=== PATIENT | female | born 1960 | race Caucasian/White ===

== ENCOUNTER → 2018-03-18 08:15 | Outpatient (CLI) | payer OTHER, SELFPAY ==
[2018-03-18 09:06] LABS: ALB/GLOB Ratio 0.9 RATIO (0.9-2.4); AST(SGOT) 21 U/L (15-37); Alanine Aminotransfer ALT/SGPT 28 U/L (13-56); Albumin, Serum 3.4 g/dL (3.2-5.0); Alkaline Phosphatase 47 U/L (45-117); Anion Gap 7 (5-15); BUN 13 mg/dL (7-18); BUN/Creat Ratio 15.1 RATIO (10-20); Calcium,Total 8.7 mg/dL (8.5-10.1); Chloride 108 mmol/L (98-107); Cholesterol 193 mg/dL (200); Creatinine, Serum 0.86 mg/dL (0.55-1.02); EST Glomerular Filtration Rate 71 mL/min (>60); Est Glom Filt Rate - Afr Amer 86 mL/min (>60); Globulin 3.8 g/dL (2.2-4.2); Glucose 102 mg/dL (74-106); High Density Lipoprotein 42 mg/dL; Potassium 4.2 mmol/L (3.5-5.1); Protein, Total 7.2 g/dL (6.4-8.2); Sodium Level 144 mmol/L (136-145); Triglycerides 248 mg/dL; Very Low Density Lipoprotein 50 mg/dL (5-40)
== END ==
PROVIDERS: Family Provider Family Medicine; PCP Family Medicine; Visit Provider Family Medicine
DX: E78.2 Mixed hyperlipidemia (principal)
CPT/HCPCS: 36415; 80053; 80061

== ENCOUNTER → 2018-03-26 07:13 | Outpatient (CLI) | payer OTHER, SELFPAY ==
--- NOTE | 2018-03-26 07:22 | BI_ITS ---
MAMMOGRAPHY - BILATERAL SCREENING REASON FOR EXAM: Female, 58 years old. Routine annual screening examination. PERTINENT HISTORY: Mother with breast cancer. TECHNIQUE: Digital bilateral breast meagan (3D mammographic acquisition) in the CC and MLO projections. 2-D mediolateral oblique (MLO) and craniocaudad (CC) views of both breasts were obtained. CAD: Full Field Digital Mammography with Computer Added Detection was performed. COMPARISON: Comparison is made with prior study dated April 16, 2017 and March 28, 2016. FINDINGS: Breast Composition: There are scattered areas of fibroglandular density. There are no dominant masses or suspicious calcifications. Stable ill-defined 4 mm nodule in the deep upper outer portion of the right breast. Stable appearance of the small bilateral axillary lymph nodes. No other significant abnormalities are identified. There has been no significant change since the prior study. BI/SCREENING MAMM (CAD), BILAT IMPRESSION: Stable bilateral screening mammogram. Yearly follow-up mammogram recommended. (A) ASSESSMENT CATEGORY: BIRADS Category 2: Benign. A letter regarding these results will be sent to the patient by the facility within 30 days. Approximately 10% of breast cancers are not detected by mammography. A normal mammogram should not delay biopsy of a clinically suspicious abnormality. [id number] Electronically Signed: Tab Castañeda MD at 8:51 EDT Tel [phone], Service support ,
== END ==
PROVIDERS: Family Provider Family Medicine; PCP Family Medicine; Visit Provider Family Medicine
DX: Z12.31 Encounter for screening mammogram for malignant neoplasm of breast (principal)
CPT/HCPCS: 77063; 77067

== ENCOUNTER → 2019-04-05 07:12 | Outpatient (CLI) | payer OTHER, SELFPAY ==
--- NOTE | 2019-04-05 07:29 | BI_ITS ---
MAMMOGRAPHY - BILATERAL SCREENING REASON FOR EXAM: Female, 59 years old. Routine annual screening examination. PERTINENT HISTORY: Mother with breast cancer. TECHNIQUE: Digital bilateral breast simba (3D mammographic acquisition) in the CC and MLO projections. 2-D mediolateral oblique (MLO) and craniocaudad (CC) views of both breasts were obtained. CAD: Full Field Digital Mammography with Computer Added Detection was performed. COMPARISON: Comparison is made with prior study dated March 26, 2018 and April 16, 2017. FINDINGS: Breast Composition: There are scattered areas of fibroglandular density. There are no dominant masses or suspicious calcifications. Stable 4 mm nodule in the deep upper outer portion of the right breast. Stable small bilateral axillary lymph nodes. No other significant abnormalities are identified. There has been no significant change since the prior study. BI/SCREEN MAMM (CAD) W/SIMBA BILAT IMPRESSION: Stable bilateral screening mammogram. Yearly follow-up mammogram recommended. (A) ASSESSMENT CATEGORY: BIRADS Category 2: Benign. A letter regarding these results will be sent to the patient by the facility within 30 days. Approximately 10% of breast cancers are not detected by mammography. A normal mammogram should not delay biopsy of a clinically suspicious abnormality. [id number] Electronically Signed: Tab Castañeda, at 9:52 EDT , Service support ,
[2019-04-05 08:17] LABS: Absolute Lymphocyte Count 2.72 X10^3/uL (0.83-4.51); Absolute Neutrophil Count 4.1 X10^3/uL (2.0-7.7); Basophil# 0.06 X10^3/uL; Basophil% 0.8 % (0-1); Eosinophil# 0.31 X10^3/uL; Eosinophils% 4.1 % (0-5); Hematocrit 43.1 % (37-47); Hemoglobin 14.6 g/dL (12.0-15.0); Lymphocyte # 2.72 X10^3/ul (4.0); Lymphocyte % 35.6 % (19-41); Mean Corp Hgb Conc 33.9 g/dL (32-36); Mean Corpuscular Hgb 29.7 pg (27.0-32.0); Mean Corpuscular Volume 87.6 fL (81-99); Mean Platelet Vol. 10.2 fl (6.2-12.0); Monocyte# 0.48 X10^3/uL; Monocyte% 6.3 % (0-10); NRBC Flagged by Analyzer 0 % (0-5); Neutrophil # 4.06 X10^3/uL (2.7-7.7); Neutrophil % 53.1 % (47-70); Platelet Count 206 K/mm3 (150-450); RBC Distribution Width CV 13.2 % (11.6-14.6); RBC Distribution Width SD 42.5 fl (35.1-43.9); Red Blood Count 4.92 M/mm3 (4.2-5.4); White Blood Count 7.6 K/mm3 (4.4-11.0)
[2019-04-05 08:39] LABS: ALB/GLOB Ratio 0.9 RATIO (0.9-2.4); AST(SGOT) 15 U/L (15-37); Alanine Aminotransfer ALT/SGPT 27 U/L (13-56); Albumin, Serum 3.4 g/dL (3.2-5.0); Alkaline Phosphatase 51 U/L (45-117); Anion Gap 10 (5-15); BUN 15 mg/dL (7-18); BUN/Creat Ratio 17.7 RATIO (10-20); Calcium,Total 8.8 mg/dL (8.5-10.1); Chloride 108 mmol/L (98-107); Cholesterol 192 mg/dL (200); Creatinine, Serum 0.85 mg/dL (0.55-1.02); EST Glomerular Filtration Rate 72 mL/min (>60); Est Glom Filt Rate - Afr Amer 88 mL/min (>60); Globulin 3.6 g/dL (2.2-4.2); Glucose 106 mg/dL (74-106); High Density Lipoprotein 39 mg/dL; Potassium 4.4 mmol/L (3.5-5.1); Sodium Level 144 mmol/L (136-145); Triglycerides 268 mg/dL; Very Low Density Lipoprotein 54 mg/dL (5-40)
== END ==
PROVIDERS: Family Provider Family Medicine; PCP Family Medicine; Referring Provider Family Medicine; Visit Provider Family Medicine
DX: Z12.31 Encounter for screening mammogram for malignant neoplasm of breast (principal); Z01.419 Encounter for gynecological examination (general) (routine) without abnormal findings; E78.5 Hyperlipidemia, unspecified; G43.109 Migraine with aura, not intractable, without status migrainosus; I47.1 Supraventricular tachycardia
CPT/HCPCS: 36415; 77063; 77067; 80053; 80061; 85025

== ENCOUNTER → 2019-06-05 13:00 | Outpatient (CLI) | payer OTHER, SELFPAY ==
[2019-06-04 08:37] VITALS: BMI 32.5
== END ==
PROVIDERS: Family Provider Family Medicine; PCP Family Medicine; Visit Provider Internal Medicine Cardiovascular Disease
DX: I47.1 Supraventricular tachycardia (principal)
CPT/HCPCS: 93225; 93226

== ENCOUNTER → 2020-03-30 13:46 | Outpatient (CLI) | payer OTHER, SELFPAY ==
[2019-06-04 08:37] VITALS: BMI 32.5
[2020-04-05 14:01] LABS: HPV Reflexed? NOT INDICATED
== END ==
PROVIDERS: PCP Family Medicine; Visit Provider Family Medicine
DX: Z12.4 Encounter for screening for malignant neoplasm of cervix (principal); Z01.419 Encounter for gynecological examination (general) (routine) without abnormal findings
CPT/HCPCS: 88175; G0145

== ENCOUNTER → 2020-03-31 07:08 | Outpatient (CLI) | payer OTHER, SELFPAY ==
[2019-06-04 08:37] VITALS: BMI 32.5
[2020-03-31 07:24] LABS: Absolute Lymphocyte Count 3.17 X10^3/uL (0.83-4.51); Absolute Neutrophil Count 5.4 X10^3/uL (2.0-7.7); Basophil# 0.07 X10^3/uL; Basophil% 0.7 % (0-1); Eosinophils% 4.1 % (0-5); Hematocrit 41.5 % (37-47); Hemoglobin 13.9 g/dL (12.0-15.0); Lymphocyte # 3.17 X10^3/ul (4.0); Lymphocyte % 32.7 % (19-41); Mean Corp Hgb Conc 33.5 g/dL (32-36); Mean Corpuscular Hgb 29.6 pg (27.0-32.0); Mean Corpuscular Volume 88.5 fL (81-99); Mean Platelet Vol. 9.6 fl (6.2-12.0); Monocyte# 0.62 X10^3/uL; Monocyte% 6.4 % (0-10); NRBC Flagged by Analyzer 0 % (0-5); Neutrophil # 5.41 X10^3/uL (2.7-7.7); Neutrophil % 55.8 % (47-70); Platelet Count 203 K/mm3 (150-450); RBC Distribution Width CV 13.4 % (11.6-14.6); RBC Distribution Width SD 42.7 fl (35.1-43.9); Red Blood Count 4.69 M/mm3 (4.2-5.4); White Blood Count 9.7 K/mm3 (4.4-11.0)
[2020-03-31 07:47] LABS: ALB/GLOB Ratio 0.9 RATIO (0.9-2.4); AST(SGOT) 14 U/L (15-37); Alanine Aminotransfer ALT/SGPT 21 U/L (13-56); Albumin, Serum 3.3 g/dL (3.2-5.0); Alkaline Phosphatase 51 U/L (45-117); Anion Gap 5 (5-15); BUN 12 mg/dL (7-18); BUN/Creat Ratio 14.5 RATIO (10-20); Calcium,Total 8.6 mg/dL (8.5-10.1); Chloride 111 mmol/L (98-107); Cholesterol 182 mg/dL (200); Creatinine, Serum 0.83 mg/dL (0.55-1.02); EST Glomerular Filtration Rate 74 mL/min (>60); Est Glom Filt Rate - Afr Amer 90 mL/min (>60); Globulin 3.8 g/dL (2.2-4.2); Glucose 103 mg/dL (74-106); High Density Lipoprotein 43 mg/dL; Potassium 4.2 mmol/L (3.5-5.1); Protein, Total 7.1 g/dL (6.4-8.2); Sodium Level 142 mmol/L (136-145); Triglycerides 156 mg/dL; Very Low Density Lipoprotein 31 mg/dL (5-40)
== END ==
PROVIDERS: PCP Family Medicine; Referring Provider Family Medicine; Visit Provider Family Medicine
DX: E78.5 Hyperlipidemia, unspecified (principal); G43.109 Migraine with aura, not intractable, without status migrainosus; I47.1 Supraventricular tachycardia
CPT/HCPCS: 36415; 80053; 80061; 85025

== ENCOUNTER → 2020-04-13 15:31 | Outpatient (CLI) | payer OTHER, SELFPAY ==
[2019-06-04 08:37] VITALS: BMI 32.5
--- NOTE | 2020-04-13 15:37 | BI_ITS ---
MAMMOGRAPHY - BILATERAL SCREENING REASON FOR EXAM: Female, 60 years old. Routine annual screening examination. PERTINENT HISTORY: Mother with breast cancer. TECHNIQUE: Digital bilateral breast simba (3D mammographic acquisition) in the CC and MLO projections. 2-D mediolateral oblique (MLO) and craniocaudad (CC) views of both breasts were obtained. CAD: Full Field Digital Mammography with Computer Added Detection was performed. COMPARISON: Comparison is made dated 04/05/2019 and 03/26/2018. FINDINGS: Breast Composition: There are scattered areas of fibroglandular density. There are no dominant masses or suspicious calcifications. Stable small benign appearing bilateral axillary lymph nodes. Stable 4 mm well-defined nodule in the deep upper outer portion of the right breast No other significant abnormalities are identified. There has been no significant change since the prior study. BI/SCREEN MAMM (CAD) W/SIMBA BILAT IMPRESSION: Stable bilateral screening mammogram. Yearly follow-up mammogram recommended. (A) ASSESSMENT CATEGORY: BIRADS Category 2: Benign. A letter regarding these results will be sent to the patient by the facility within 30 days. Approximately 10% of breast cancers are not detected by mammography. A normal mammogram should not delay biopsy of a clinically suspicious abnormality. [id number] Electronically Signed: Tab Castañeda, at 8:44 EDT , Service support ,
== END ==
PROVIDERS: PCP Family Medicine; Referring Provider Family Medicine; Visit Provider Family Medicine
DX: Z12.31 Encounter for screening mammogram for malignant neoplasm of breast (principal); Z80.3 Family history of malignant neoplasm of breast
CPT/HCPCS: 77063; 77067

== ENCOUNTER → 2021-04-01 06:56 | Outpatient (CLI) | payer OTHER, SELFPAY ==
[2020-06-10 07:29] VITALS: BMI 29.5
[2021-04-01 07:29] LABS: Absolute Lymphocyte Count 3.13 X10^3/uL (0.83-4.51); Absolute Neutrophil Count 6.6 X10^3/uL (2.0-7.7); Basophil# 0.08 X10^3/uL; Basophil% 0.7 % (0-1); Eosinophil# 0.38 X10^3/uL; Eosinophils% 3.5 % (0-5); Hematocrit 41.1 % (37-47); Lymphocyte # 3.13 X10^3/ul (0.83-4.51); Lymphocyte % 28.9 % (19-41); Mean Corp Hgb Conc 34.1 g/dL (32-36); Mean Corpuscular Hgb 29.7 pg (27.0-32.0); Mean Corpuscular Volume 87.3 fL (81-99); Mean Platelet Vol. 9.7 fl (6.2-12.0); Monocyte# 0.61 X10^3/uL; Monocyte% 5.6 % (0-10); NRBC Flagged by Analyzer 0 % (0-5); Neutrophil # 6.59 X10^3/uL (2.7-7.7); Neutrophil % 60.9 % (47-70); Platelet Count 219 K/mm3 (150-450); RBC Distribution Width CV 13.1 % (11.6-14.6); RBC Distribution Width SD 42.4 fl (35.1-43.9); Red Blood Count 4.71 M/mm3 (4.2-5.4); White Blood Count 10.8 K/mm3 (4.4-11.0)
[2021-04-01 08:00] LABS: AST(SGOT) 19 U/L (15-37); Alanine Aminotransfer ALT/SGPT 27 U/L (13-56); Albumin, Serum 3.5 g/dL (3.2-5.0); Alkaline Phosphatase 49 U/L (45-117); Anion Gap 8 (5-15); BUN 17 mg/dL (7-18); BUN/Creat Ratio 21.5 RATIO (10-20); Calcium,Total 8.5 mg/dL (8.5-10.1); Chloride 107 mmol/L (98-107); Cholesterol 220 mg/dL (200); Creatinine, Serum 0.79 mg/dL (0.55-1.02); EST Glomerular Filtration Rate 78 mL/min (>60); Est Glom Filt Rate - Afr Amer 94 mL/min (>60); Globulin 3.5 g/dL (2.2-4.2); Glucose 97 mg/dL (74-106); High Density Lipoprotein 51 mg/dL; Sodium Level 141 mmol/L (136-145); Triglycerides 117 mg/dL; Very Low Density Lipoprotein 23 mg/dL (5-40)
== END ==
PROVIDERS: PCP Family Medicine; Referring Provider Family Medicine; Visit Provider Family Medicine
DX: Z00.00 Encounter for general adult medical examination without abnormal findings (principal); E78.5 Hyperlipidemia, unspecified; I47.1 Supraventricular tachycardia
CPT/HCPCS: 36415; 80053; 80061; 85025

== ENCOUNTER → 2021-04-21 07:01 | Outpatient (CLI) | payer OTHER, SELFPAY ==
[2020-06-10 07:29] VITALS: BMI 29.5
--- NOTE | 2021-04-21 07:12 | BI_ITS ---
MAMMOGRAPHY - BILATERAL SCREENING REASON FOR EXAM: Female, 61 years old. Routine annual screening examination. PERTINENT HISTORY: Mother with breast cancer. TECHNIQUE: Digital bilateral breast simba (3D mammographic acquisition) in the CC and MLO projections. 2-D mediolateral oblique (MLO) and craniocaudad (CC) views of both breasts were obtained. CAD: Full Field Digital Mammography with Computer Added Detection was performed. COMPARISON: Comparison is made with prior examination dated 04/13/2020 and 04/05/2019. FINDINGS: Breast Composition: There are scattered areas of fibroglandular density. There are no dominant masses or suspicious calcifications. Stable small benign appearing bilateral axillary lymph nodes. Stable 4 mm well-defined nodule in the deep upper outer aspect of the right breast. No other significant abnormalities are identified. There has been no significant change since the prior study. BI/SCRN MAMM (CAD)W/SIMBA BILAT IMPRESSION: Stable bilateral screening mammogram. Yearly follow-up mammogram recommended. (A) ASSESSMENT CATEGORY: BIRADS Category 2: Benign. A letter regarding these results will be sent to the patient by the facility within 30 days. Approximately 10% of breast cancers are not detected by mammography. A normal mammogram should not delay biopsy of a clinically suspicious abnormality. [id number] Electronically Signed: Tab Castañeda MD at 8:24 EDT , Service support ,
== END ==
PROVIDERS: PCP Family Medicine; Referring Provider Family Medicine; Visit Provider Family Medicine
DX: Z12.31 Encounter for screening mammogram for malignant neoplasm of breast (principal)
CPT/HCPCS: 77063; 77067

== ENCOUNTER → 2022-04-07 | Outpatient (CLI) | payer OTHER, SELFPAY ==
[2022-04-07 07:30] LABS: Absolute Lymphocyte Count 2.79 X10^3/uL (0.83-4.51); Absolute Neutrophil Count 4.7 X10^3/uL (2.0-7.7); Basophil# 0.07 X10^3/uL; Basophil% 0.8 % (0-1); Eosinophil# 0.48 X10^3/uL; Eosinophils% 5.6 % (0-5); Hematocrit 40.1 % (37-47); Hemoglobin 13.5 g/dL (12.0-15.0); Lymphocyte # 2.79 X10^3/ul (0.83-4.51); Lymphocyte % 32.4 % (19-41); Mean Corp Hgb Conc 33.7 g/dL (32-36); Mean Corpuscular Hgb 30.1 pg (27.0-32.0); Mean Corpuscular Volume 89.3 fL (81-99); Mean Platelet Vol. 9.6 fl (6.2-12.0); Monocyte# 0.54 X10^3/uL; Monocyte% 6.3 % (0-10); NRBC Flagged by Analyzer 0 % (0-5); Neutrophil # 4.71 X10^3/uL (2.7-7.7); Neutrophil % 54.7 % (47-70); Platelet Count 225 K/mm3 (150-450); RBC Distribution Width CV 13.1 % (11.6-14.6); Red Blood Count 4.49 M/mm3 (4.2-5.4); White Blood Count 8.6 K/mm3 (4.4-11.0)
[2022-04-07 08:11] LABS: ALB/GLOB Ratio 0.9 RATIO (0.9-2.4); AST(SGOT) 17 U/L (15-37); Alanine Aminotransfer ALT/SGPT 21 U/L (13-56); Albumin, Serum 3.2 g/dL (3.2-5.0); Alkaline Phosphatase 47 U/L (45-117); Anion Gap 3 (5-15); BUN 16 mg/dL (7-18); BUN/Creat Ratio 20.3 RATIO (10-20); Chloride 111 mmol/L (98-107); Cholesterol 179 mg/dL (200); Creatinine, Serum 0.79 mg/dL (0.55-1.02); EST Glomerular Filtration Rate 78 mL/min (>60); Est Glom Filt Rate - Afr Amer 94 mL/min (>60); Globulin 3.7 g/dL (2.2-4.2); Glucose 105 mg/dL (74-106); High Density Lipoprotein 46 mg/dL; Potassium 4.1 mmol/L (3.5-5.1); Protein, Total 6.9 g/dL (6.4-8.2); Sodium Level 142 mmol/L (136-145); Triglycerides 126 mg/dL; Very Low Density Lipoprotein 25 mg/dL (5-40)
== END | disposition home or self-care (01) ==
LOC: LAB 07:10
PROVIDERS: PCP Family Medicine; Referring Provider Family Medicine; Visit Provider Family Medicine
DX: Z00.00 Encounter for general adult medical examination without abnormal findings (principal); E78.5 Hyperlipidemia, unspecified
CPT/HCPCS: 36415; 80053; 80061; 85025

== ENCOUNTER → 2022-04-24 | Outpatient (CLI) | payer OTHER, SELFPAY ==
--- NOTE | 2022-04-24 12:53 | BI_ITS ---
MAMMOGRAPHY - BILATERAL SCREENING 3-D TOMOSYNTHESIS REASON FOR EXAM: Female, 62 years old. SCREENING PERTINENT HISTORY: No significant family history. TECHNIQUE: 2-D mammograms and 3-D Tomosynthesis of the breast (s) were performed. CAD was performed. COMPARISON: 04/21/2021 FINDINGS: The breast composition is composed of scattered fibroglandular density. Scattered benign calcifications are seen. No dense spiculated masses or suspicious microcalcifications are identified. No architectural distortion is identified. There is no skin thickening or retraction. There has been no significant change since the prior study. BI/SCRN MAMM (CAD)W/SIMBA BILAT IMPRESSION: No mammographic signs of malignancy. Routine yearly mammograms recommended. ASSESSMENT CATEGORY: BIRADS Category 1: Negative. A letter regarding these results will be sent to the patient by the facility within 30 days. FOLLOW UP RECOMMENDATION: Yearly follow up mammogram recommended. (A) Approximately 10% of breast cancers are not detected by mammography. A normal mammogram should not delay biopsy of a clinically suspicious abnormality. Electronically Signed: Darnell Chisholm MD at 16:03 EDT ,
== END | disposition home or self-care (01) ==
LOC: OPBI 12:51
PROVIDERS: PCP Family Medicine; Visit Provider Family Medicine
DX: Z12.31 Encounter for screening mammogram for malignant neoplasm of breast (principal)
CPT/HCPCS: 77063; 77067

== ENCOUNTER → 2023-04-13 | Outpatient (CLI) | payer MEDICARE, OTHER, SELFPAY ==
[2023-04-13 12:04] LABS: Absolute Lymphocyte Count 1.93 X10^3/uL (0.83-4.51); Absolute Neutrophil Count 4.4 X10^3/uL (2.0-7.7); Basophil# 0.07 X10^3/uL; Eosinophil# 0.36 X10^3/uL; Eosinophils% 4.9 % (0-5); Hematocrit 39.6 % (37-47); Hemoglobin 13.2 g/dL (12.0-15.0); Lymphocyte # 1.93 X10^3/ul (0.83-4.51); Lymphocyte % 26.5 % (19-41); Mean Corp Hgb Conc 33.3 g/dL (32-36); Mean Corpuscular Hgb 29.7 pg (27.0-32.0); Mean Platelet Vol. 9.9 fl (6.2-12.0); Monocyte# 0.49 X10^3/uL; Monocyte% 6.7 % (0-10); NRBC Flagged by Analyzer 0 % (0-5); Neutrophil # 4.41 X10^3/uL (2.7-7.7); Neutrophil % 60.6 % (47-70); Platelet Count 176 K/mm3 (150-450); RBC Distribution Width CV 13.3 % (11.6-14.6); RBC Distribution Width SD 43.8 fl (35.1-43.9); Red Blood Count 4.45 M/mm3 (4.2-5.4); White Blood Count 7.3 K/mm3 (4.4-11.0)
[2023-04-13 12:30] LABS: ALB/GLOB Ratio 0.9 RATIO (0.9-2.4); AST(SGOT) 17 U/L (15-37); Alanine Aminotransfer ALT/SGPT 21 U/L (13-56); Albumin, Serum 3.3 g/dL (3.2-5.0); Alkaline Phosphatase 50 U/L (45-117); Anion Gap 3 (5-15); BUN 14 mg/dL (7-18); BUN/Creat Ratio 17.5 RATIO (10-20); Calcium,Total 8.8 mg/dL (8.5-10.1); Chloride 110 mmol/L (98-107); Cholesterol 168 mg/dL (200); EST Glomerular Filtration Rate 77 mL/min (>60); Est Glom Filt Rate - Afr Amer 93 mL/min (>60); Globulin 3.7 g/dL (2.2-4.2); Glucose 95 mg/dL (74-106); High Density Lipoprotein 42 mg/dL; Potassium 4.3 mmol/L (3.5-5.1); Sodium Level 140 mmol/L (136-145); Triglycerides 122 mg/dL; Very Low Density Lipoprotein 24 mg/dL (5-40)
[2023-04-13 12:57] LABS: Hepatitis C Antibody Non-Reactive (Nonreactive)
[2023-04-19 14:09] LABS: Age Gdln ACOG Testing 30-65 (.); HPV APTIMA, High Risk Negative (Negative)
[2023-04-19 17:10] LABS: HPV Reflexed? YES, CHARGE PATIENT
== END | disposition home or self-care (01) ==
PROVIDERS: PCP Family Medicine; Referring Provider Family Medicine; Visit Provider Family Medicine
DX: Z00.00 Encounter for general adult medical examination without abnormal findings (principal); E78.5 Hyperlipidemia, unspecified; Z11.59 Encounter for screening for other viral diseases; Z12.4 Encounter for screening for malignant neoplasm of cervix
CPT/HCPCS: 36415; 80053; 80061; 85025; 86803; 87624; 88175; G0145

== ENCOUNTER → 2023-04-26 | Outpatient (CLI) | payer MEDICARE, OTHER, SELFPAY ==
--- NOTE | 2023-04-26 12:52 | BI_ITS ---
MAMMOGRAPHY - BILATERAL SCREENING REASON FOR EXAM: Female, 63 years old. Routine annual screening examination. PERTINENT HISTORY: Mother with breast cancer. TECHNIQUE: Digital bilateral breast simba (3D mammographic acquisition) in the CC and MLO projections. 2-D mediolateral oblique (MLO) and craniocaudad (CC) views of both breasts were obtained. CAD: Full Field Digital Mammography with Computer Added Detection was performed. COMPARISON: Comparison is made with prior study April 24, 2022 and April 21, 2021. FINDINGS: Breast Composition: There are scattered areas of fibroglandular density. There are no dominant masses or suspicious calcifications. Stable benign-appearing bilateral axillary lymph nodes. No other significant abnormalities are identified. There has been no significant change since the prior study. BI/SCRN MAMM (CAD)W/SIMBA BILAT IMPRESSION: Stable bilateral screening mammogram. Yearly follow-up mammogram recommended. (A) ASSESSMENT CATEGORY: BIRADS Category 2: Benign. A letter regarding these results will be sent to the patient by the facility within 30 days. Approximately 10% of breast cancers are not detected by mammography. A normal mammogram should not delay biopsy of a clinically suspicious abnormality. [id number] Electronically Signed: Tab Castañeda MD at 8:45 EDT ,
--- NOTE | 2023-04-26 12:55 | BD_ITS ---
STUDY: DUAL ENERGY X-RAY ABSORPTIOMETRY / DXA REASON FOR EXAM: Female, 63 years old. 733.00OsteoporosisBONE DENSITY REASON FOR EXAM TECHNIQUE: Bone Mineral Density (BMD) measurements of lumbar spine and bilateral hips were obtained. COMPARISON: None. FINDINGS: Lumbar Spine (L1-L4): g/cm2 (1.086) / T-score (0.5) / Z-score (2.2) Findings are suggestive of normal bone density with a low fracture risk. Left Femur Total: g/cm2 (0.937) / T-score (0.0) / Z-score (1.2) Left Femoral Neck: g/cm2 (0.771) / T-score (-0.7) / Z-score (0.8) Right Femur Total: g/cm2 (0.962) / T-score (0.2) / Z-score (1.4) Right Femoral Neck: g/cm2 (0.803) / T-score (-0.4) / Z-score (1.1) BD/Dexa Bone Density Study IMPRESSION: The patient is considered normal as outlined below according to World Jose Organization (WHO) criteria with a low fracture risk. Reference Information: The T-score is the number of standard deviations above or below the standard which is normal for young adults at their peak bone mineral density. The World Health Organization (WHO) interprets the T-scores as follows: Above -1 Normal bone density Between -1 and -2.5 Osteopenia Equal to / or below -2.5 Osteoporosis As a practical clinical guideline, osteopenia may be graded as follows: Mild -1 through -1.5 Moderate -1.6 through -2.0 Severe -2.1 through -2.4 The Z-score is the number of standard deviations above or below age-matched controls. A Z-score of less than -1.5 would be considered abnormal. References: 1. NIH Osteoporosis and Related Bone Diseases www osteo.org 2. International Society for Clinical Densitometry www iscd.org 3. National Osteoporosis Foundation www nof.org Electronically Signed: Tab Castañeda MD at 12:27 EDT ,
== END | disposition home or self-care (01) ==
LOC: OPBD 12:51
PROVIDERS: PCP Family Medicine; Referring Provider Family Medicine; Visit Provider Family Medicine
DX: Z12.31 Encounter for screening mammogram for malignant neoplasm of breast (principal); Z13.820 Encounter for screening for osteoporosis; Z80.3 Family history of malignant neoplasm of breast; M81.0 Age-related osteoporosis without current pathological fracture
CPT/HCPCS: 77063; 77067; 77080

== ENCOUNTER 2023-05-23 09:45 | Day surgery (SDC) | payer MEDICARE, OTHER, SELFPAY ==
[2023-05-23] VITALS (14 sets, daily range): BP systolic 87–141; BP diastolic 39–109; PULSE 66–85; RESP 14–17; TEMP 36.2–36.7; O2SAT 92–100; BMI 30.8
[2023-05-23] MEDS: Lactated Ringers 1,000 ML 15 ML IV (10:05)
--- NOTE | 2023-05-23 10:21 | H&P.OPEN ---
[facility] - General General Date of Service: 05/23/23 HPI Narrative INGRIS WINSTON, is a 63 F who presents for screening colonoscopy. Patient had a colonoscopy 10 years ago which was negative by Dr. Jasso. Patient denies any chronic abdominal pain/nausea/vomiting/reflux. Patient states she has bowel movements daily denies any blood. Patient's father as well as niece on paternal side was diagnosed with colon cancer?father about 77 years old and niece about 50 years old. Patient does take baby aspirin as well as fish oil which she has helped. [facility] Medical History Arthritis Benign essential tremor Blackout Breast lump Cardiology follow-up encounter Dysplastic nevi Family history of colon cancer in father Gastric reflux Heart murmur High cholesterol High triglycerides History of trigger finger Hyperlipidemia Migraines Non-smoker Normal Holter exam Obesity Paroxysmal supraventricular tachycardia Post-menopausal Seasonal allergies Shoulder pain Symptomatic bradycardia Tinnitus of left ear Wears contact lenses Wears glasses Home Medications cetirizine 10 mg capsule (Zyrtec) 10 mg PO QDAY 01/02/18 [History Last Taken Unknown] propranolol 60 mg capsule,24 hr,extended release 80 mg PO Q24H 01/02/18 [History Last Taken Unknown] diazepam 5 mg tablet 5 mg PO DAILY PRN dizziness #30 tabs 06/02/19 [History Last Taken Unknown] diclofenac potassium 50 mg tablet 50 mg PO DAILY #270 tabs 06/02/19 [History Last Taken Unknown] duloxetine 60 mg capsule,delayed release 60 mg PO DAILY #90 caps 06/02/19 [History Last Taken Unknown] simvastatin 40 mg tablet 40 mg PO QHS #90 tabs 06/02/19 [History Last Taken Unknown] sumatriptan succinate 100 mg tablet 100 mg PO Q2H #5 tabs 06/02/19 [History Last Taken Unknown] aspirin 81 mg tablet,delayed release (Adult Low Dose Aspirin) 81 mg PO DAILY 04/17/23 [History Last Taken 05/20/23] omega-3 fatty acids-fish oil 360 mg-1,200 mg capsule (Fish Oil) 1 cap PO DAILY 04/17/23 [History Last Taken 05/20/23] Allergy/AdvReac Type Severity Reaction Status Date / Time No Known Allergies Allergy Verified 05/23/23 09:50 Family History Brother Myocardial infarction, Onset Age: 63 Mother Breast cancer Hypertension Hyperlipidemia CVA (cerebral vascular accident) Father Colon cancer Other Cancer Surgical History Hx of carpal tunnel repair Hx of colonoscopy Hx of tubal ligation Social History (Updated 04/17/23 @ 10:18 by Bridgette Dunn) household members: spouse current occupational status: retired Smoking Status: Never smoker alcohol intake: never substance use type: does not use Past Medical/Surgical History Planned Operation Planned Operative Procedure/s: COLONOSCOPY-OA Previous Hospitalizations/Surgeries HX Hospitalizations: No Any Problems With Anesthesia: No You/Your Family Experience Fever (Hyperthermia) With Anes: No Cholinesterase deficiency: No Cardiovascular Hx Chest Pain within Last 2 months: No Hx of Irregular Heartbeat and/or Afib: Yes Hx Heart Attack: No Hx Congestive Heart Failure: No Hx Hypertension: No Hx Internal Defibrillator: No Hx Pacemaker: No Hx Cardiac Surgery/Stents/Etc.: No Respiratory Hx Chronic Obstructive Pulmonary Disease (COPD): No Hx Asthma: No Hx Emphysema: No Hx Sleep Apnea: No Hx Respiratory Tract Infection/Cold (presently): Yes (COUGH) Do You Snore Loudly (louder than talking or can be heard): No Do You Often Feel Tired/ Fatigued/ Sleepy Dring Daytime?: No Has Anyone Observed You Stop Breathing During Sleep?: No Result (for STOP score): Negative Hx Smoking: No Smoking Status: Never smoker Gastrointestinal Hx Gastroesophageal Reflux: No Hx Ulcer: No Neurological Hx Seizures: No Hx Multiple Sclerosis: No Hx Parkinson's Disease: No Hx Head/Neck Injury: No Hx Headaches: Yes Hx Back Injury/Pain: No Does patient have nerve stimulator: No Blood Disorder Hx Anemia: No Genitourinary Hx Dialysis: No Musculoskeletal Hx Arthritis: No Hx Rheumatoid Arthritis: No Endocrine Hx Diabetes: No Thyroid Disease: No Psycho/Social Hx Anxiety: No Hx Depression: No Hx Dementia: No Miscellaneous Hx Cancer: No Recent Exposure to Contagious Disease: No Allergies No Known Allergies Allergy (Verified 05/23/23 09:50) Discharge Is Pt Admitted From a Detention, or a Prison: No After D/C, Where Do you Plan to Go: Return Home Vital Signs Vital Signs Vital Signs: 05/23/23 10:06 05/23/23 10:06 Temperature 98 F Temperature Source Temporal Pulse Rate 77 Respiratory Rate 17 Respiratory Pattern Normal Blood Pressure 116/56 L Blood Pressure Mean 76 Blood Pressure Source Monitor Blood Pressure Position Semi-Fowlers Blood Pressure Location Right Arm Pulse Ox 96 Oxygen Delivery Method Room Air Weight Weight: 174 lb 2.643 oz Body Mass Index (BMI) 30.8 Physical Exam Const alert, oriented x3 and no apparent distress HEENT normocephalic and head/scalp atraumatic Resp normal respiratory effort Cardio regular rate GI soft to palpation and non-tender; Negative for non-distended Palpation: Negative for guarding Extremity no clubbing, cyanosis or edema Neuro CN's II-XII intact bilaterally Psych mental status grossly normal Assessment & Plan Assessment/Plan (1) Encounter for screening for malignant neoplasm of colon: Surgery Risks - Colonoscopy I discussed with the patient the risks of the procedure: Yes Risks Include but are not Limited To: Risks include but are not limited to: Bleeding, perforation requiring further surgery, inability to complete colonoscopy requiring barium enema.
--- NOTE | 2023-05-23 11:00 | COLBX_PTH ---
PATIENT: INGRIS WINSTON LOC: EN U#:[id number] AGE/SX: 63/F ROOM: RE05/23/[address]: Dr. Angy Lopez MD : 1960 BED: DIS: 05/23/2023 SPEC #: [id number] RECD: 05/23/23 15:12 STATUS: MARTITA REYNOLD #: [id number] REGINALD: 05/23/23 11:[address]: Angy Lopez DEPT: SURGICAL PATHOLOGY RECD BY: Deya Owens ENTERED: 05/24/23 09:05 SP TYPE: COLON BX FELICITY DR: Dr. Anisa Klein MD Tissues: A - Ascending colon B - Sigmoid colon biopsy Procedures: Surgery Specimen Level IV HEADER OPERATION: Colonoscopy - open access with polypectomy and biopsies PRE-OP DIAGNOSIS: Screening TISSUE SUBMITTED: A - Ascending colon polyps x3, polypectomy and biopsy, B - Sigmoid polyps x2 biopsy MICROSCOPIC DIAGNOSIS A. Ascending colon polyps, biopsy: Fragments of tubular adenoma. B. Sigmoid colon polyps, biopsy: Fragments of colonic mucosa with focal hyperplastic change. AM:benoit 05/25/2023 MICROSCOPIC DESCRIPTION Slides are reviewed. GROSS DESCRIPTION A - Received in fixative is one container labeled with the patient's name and designated ascending colon polyp. The specimen consists of multiple irregular fragments of light espino soft tissue that in aggregate measure 1.5 x 1.0 x 0.3 cm. The largest piece measures 0.8 cm in greatest dimension. The entire specimen is submitted in one cassette. B - Received in fixative is one container labeled with the patient's name and designated sigmoid polyp biopsy. The specimen consists of two irregular fragments of light espino soft tissue that in aggregate measure 0.6 x 0.3 x 0.1 cm. The specimen is totally submitted in one cassette. / SJ:benoit 05/24/2023 TC:5 CPT: 85462 x2
--- NOTE | 2023-05-23 11:15 | OP.COLON_ITS ---
Patient Name: Edwige Maier Procedure Date: 05/23/2023 10:29 AM Date of : 1960 Age: 63 Procedure: Colonoscopy Indications: Screening for colorectal malignant neoplasm Providers: Angy Lopez MD Referring MD: Anisa Klein Medicines: Monitored Anesthesia Care Patient Profile: This is a 63 year old female. Last Colonoscopy: 10 years ago. Complications: No immediate complications. Procedure: Pre-Anesthesia Assessment: - Prior to the procedure, a History and Physical was performed, and patient medications and allergies were reviewed. The patient's tolerance of previous anesthesia was also reviewed. The risks and benefits of the procedure and the sedation options and risks were discussed with the patient. All questions were answered, and informed consent was obtained. Prior Anticoagulants: The patient has taken no anticoagulant or antiplatelet agents. ASA Grade Assessment: Per anesthesia. After reviewing the risks and benefits, the patient was deemed in satisfactory condition to undergo the procedure. After I obtained informed consent, the scope was passed under direct vision. Throughout the procedure, the patient's blood pressure, pulse, and oxygen saturations were monitored continuously. The Colonoscope was introduced through the anus and advanced to the cecum, identified by the appendiceal orifice, ileocecal valve and palpation. The colonoscopy was performed without difficulty. The patient tolerated the procedure well. The quality of the bowel preparation was good. Scope In: 10:42:06 AM Scope Withdrawal Time 0 hours 14 minutes 22 seconds Scope Out: 11:07:11 AM Total Procedure Duration Time 0 hours 25 minutes 5 seconds Findings: The perianal and digital rectal examinations were normal. Two carpet-like polyps were found in the ascending colon. The polyps were 4 to 7 mm in size. These polyps were removed with a hot snare. Resection and retrieval were complete. Three sessile polyps were found in the sigmoid colon. The polyps were less than 5 mm in size. These polyps were removed with a cold biopsy forceps. Resection and retrieval were complete. The exam was otherwise without abnormality. Impression: - Two 4 to 7 mm polyps in the ascending colon, removed with a hot snare. Resected and retrieved. Recommendation: - Discharge patient to home. - Resume previous diet. - Continue present medications. - Await pathology results. - Repeat colonoscopy in 3 - 5 years for surveillance based on pathology results. Procedure Code(s): --- Professional --- 08281, PT, Colonoscopy, flexible; with removal of tumor(s), polyp(s), or other lesion(s) by snare technique 67100, 59, Colonoscopy, flexible; with biopsy, single or multiple Diagnosis Code(s): --- Professional --- Z12.11, Encounter for screening for malignant neoplasm of colon D12.2, Benign neoplasm of ascending colon CPT copyright 2021 [employer]. All rights reserved. The codes documented in this report are preliminary and upon barrel raiser helper review may be revised to meet current compliance requirements. MD Angy Uribe MD 05/23/2023 11:14:42 AM This report has been signed electronically. Number of Addenda: 0 Note Initiated On: 05/23/2023 10:29 AM
--- NOTE | 2023-05-23 11:15 | OP.CCLET_ITS ---
05/23/2023 Anisa Klein [place] [id number] [address] Re : Colonoscopy procedure for Edwige Maier Dear Dr. Klein This procedure was performed on Sunday, May 23, 2023. My impressions and recommendations are as follows: Impressions : - Two 4 to 7 mm polyps in the ascending colon, removed with a hot snare. Resected and retrieved. Recommendations : - Discharge patient to home. - Resume previous diet. - Continue present medications. - Await pathology results. - Repeat colonoscopy in 3 - 5 years for surveillance based on pathology results. My findings are described in the full procedure note, which is enclosed. If I can be of further assistance, please feel free to contact me at Doctor phone number(s): , Work: . Sincerely, MD Angy Uribe MD 05/23/2023 11:14:42 AM This report has been signed electronically.
[2023-05-23] MEDS: Ipratropium/Albuterol Sulfate 3 ML AMPUL.NEB INHALATION (11:49)
== END 2023-05-23 12:43 | disposition home or self-care (01) ==
LOC: EN 09:45 → AC 09:46
PROVIDERS: PCP Family Medicine; Referring Provider Family Medicine; Visit Provider Surgery
PROC: 0DJD8ZZ Inspection of Lower Intestinal Tract, Via Natural or Artificial Opening Endoscopic (ICD-10-PCS; CPT 45378; principal; 2023-05-23 10:55)
DX: Z12.11 Encounter for screening for malignant neoplasm of colon (principal); Z80.0 Family history of malignant neoplasm of digestive organs; D12.2 Benign neoplasm of ascending colon; E78.5 Hyperlipidemia, unspecified
CPT/HCPCS: 45385; 45380; 88305; 94640; J7120; J2405

== ENCOUNTER → 2024-02-07 | Outpatient (CLI) | payer MEDICARE, OTHER, SELFPAY ==
[2024-02-07 12:58] LABS: Absolute Lymphocyte Count 1.65 X10^3/uL (0.83-4.51); Absolute Neutrophil Count 5.8 X10^3/uL (2.0-7.7); Basophil# 0.06 X10^3/uL; Basophil% 0.7 % (0-1); Eosinophil# 0.66 X10^3/uL; Eosinophils% 7.6 % (0-5); Hematocrit 35.6 % (37-47); Hemoglobin 11.4 g/dL (12.0-15.0); Lymphocyte # 1.65 X10^3/ul (0.83-4.51); Lymphocyte % 18.9 % (19-41); Mean Corpuscular Hgb 27.9 pg (27.0-32.0); Mean Corpuscular Volume 87.3 fL (81-99); Mean Platelet Vol. 10.4 fl (6.2-12.0); Monocyte# 0.52 X10^3/uL; NRBC Flagged by Analyzer 0 % (0-5); Neutrophil # 5.81 X10^3/uL (2.7-7.7); Neutrophil % 66.5 % (47-70); Platelet Count 213 K/mm3 (150-450); RBC Distribution Width CV 13.6 % (11.6-14.6); Red Blood Count 4.08 M/mm3 (4.2-5.4); White Blood Count 8.7 K/mm3 (4.4-11.0)
[2024-02-07 13:05] LABS: Erythrocyte Sedimentation Rate 14 mm/hr (0-30)
[2024-02-07 16:22] LABS: AST(SGOT) 21 U/L (15-37); Alanine Aminotransfer ALT/SGPT 24 U/L (13-56); Albumin, Serum 3.5 g/dL (3.2-5.0); Alkaline Phosphatase 44 U/L (45-117); Anion Gap 5 (5-15); BUN 15 mg/dL (7-18); BUN/Creat Ratio 17.8 RATIO (10-20); CRP < 2.90 mg/L (0.0-3.0); Calcium,Total 8.7 mg/dL (8.5-10.1); Chloride 109 mmol/L (98-107); Creatinine, Serum 0.84 mg/dL (0.55-1.02); EST Glomerular Filtration Rate 72 mL/min (>60); Est Glom Filt Rate - Afr Amer 87 mL/min (>60); Globulin 3.5 g/dL (2.2-4.2); Glucose 89 mg/dL (74-106); Magnesium 2.2 mg/dL (1.6-2.6); Potassium 4.3 mmol/L (3.5-5.1); Sodium Level 138 mmol/L (136-145); Thyroid Stim Hormone (TSH) 0.65 uIU/mL (0.358-3.74)
== END | disposition home or self-care (01) ==
LOC: BFHLAB 10:47
PROVIDERS: PCP Family Medicine; Referring Provider Family Medicine; Visit Provider Family Medicine
DX: R29.898 Other symptoms and signs involving the musculoskeletal system (principal); R01.1 Cardiac murmur, unspecified
CPT/HCPCS: 36415; 80053; 83735; 84443; 85025; 85652; 86140

== ENCOUNTER → 2024-02-15 | Outpatient (CLI) | payer MEDICARE, OTHER, SELFPAY ==
--- NOTE | 2024-02-15 07:07 | ECHOD_ITS ---
Reason For Study: SYSTOLIC MURMUR Procedure This was a 2D Doppler, Color Flow transthoracic echocardiogram. Exam performed in department. Left Ventricle Normal LV size. Mild concentric left ventricular hypertrophy. The left ventricular ejection fraction is 65 %. Diastolic function is indeterminate. Right Ventricle Normal right ventricle. Atria The left and right atria are normal. Mitral Valve Mild mitral annular calcification. Tricuspid Valve Mild tricuspid valve insufficiency. Normal pulmonary artery pressure. Aortic Valve Moderately calcified aortic valve. Severe aortic valve stenosis with mean peak gradient 82 mmHg. Mild to moderate aortic valve regurgitation. Pulmonic Valve The pulmonic valve is not well visualized. Great Vessels Normal sized aortic root. Pericardium/Pleural No pericardial effusion. MMode/2D Measurements & Calculations LVIDd: 4.1 cm IVSd: 1.1 cm LVOT diam: 1.6 cm LVIDs: 2.7 cm LVPWd: 1.2 cm LVOT area: 2.0 cm2 RVDd: 2.8 cm FS: 33.6 % Ao root diam: 3.5 cm LAV(MOD-bp): 36.8 ml LVAd ap4: 26.2 cm2 LAV(MOD-bp) Indexed: 20.2 ml/m2 LVLd ap4: 7.7 cm LAV(MOD-sp2): 36.8 ml EDV(MOD-sp4): 73.3 ml LAV(MOD-sp4): 33.0 ml EDV(sp4-el): 75.8 ml LVAs ap4: 12.8 cm2 LVLs ap4: 6.0 cm ESV(MOD-sp4): 25.5 ml ESV(sp4-el): 23.2 ml EF(MOD-sp4): 65.3 % EF(sp4-el): 69.4 % LVAd ap2: 29.4 cm2 SV(MOD-sp4): 47.9 ml SV(MOD-sp2): 64.7 ml LVLd ap2: 8.1 cm EDV(MOD-sp2): 91.1 ml EDV(sp2-el): 90.5 ml LVAs ap2: 13.2 cm2 LVLs ap2: 6.3 cm ESV(MOD-sp2): 26.4 ml ESV(sp2-el): 23.6 ml EF(MOD-sp2): 71.0 % SV(sp4-el): 52.6 ml LA dimension(2D): 3.5 cm LA A4 area: 12.4 cm2 RA A4 area: 10.4 cm2 TAPSE: 2.2 cm Time Measurements MV dec time: 0.15 sec Doppler Measurements & Calculations MV E max nathan: 63.7 cm/sec Lat Peak E' Nathan: 3.5 cm/sec Med Peak E' Nathan: 6.9 cm/sec MV A max nathan: 95.9 cm/sec E/E' lat: 18.4 E/E' med: 9.2 MV E/A: 0.66 MV V2 max: 80.8 cm/sec MV P1/2t max nathan: 71.4 cm/sec Ao V2 max: 562.1 cm/sec MV max P.6 mmHg MV P1/2t: 59.3 msec Ao max P.5 mmHg MV V2 mean: 47.8 cm/sec Ao V2 mean: 438.6 cm/sec MV mean P.0 mmHg MV dec slope: 352.8 cm/sec2 Ao mean P.0 mmHg MV V2 VTI: 21.1 cm MVA(P1/2t): 3.7 cm2 Ao V2 VTI: 124.6 cm AV (velocity ratio): 0.20 MVA(VTI): 2.3 cm2 HAIDER(I,D): 0.39 cm2 HAIDER(V,D): 0.37 cm2 AI max nathan: 425.4 cm/sec LV V1 max: 104.8 cm/sec SV(LVOT): 49.2 ml AI max P.4 mmHg LV V1 max P.4 mmHg AI dec slope: 370.7 cm/sec2 LV V1 mean P.6 mmHg AI P1/2t: 336.1 msec LV V1 mean: 78.3 cm/sec LV V1 VTI: 24.9 cm PA V2 max: 99.6 cm/sec TR max nathan: 268.3 cm/sec PA V2 mean: 68.4 cm/sec TR max P.8 mmHg ECHO/Echo Complete Interpretation Summary Mild concentric left ventricular hypertrophy. The left ventricular ejection fraction is 65 %. Diastolic function is indeterminate. Mild tricuspid valve insufficiency. Moderately calcified aortic valve. Severe aortic valve stenosis with mean peak gradient 82 mmHg. Mild to moderate aortic valve regurgitation. Ordering Physician: Anisa Klein Referring Physician: Anisa Klein Performed By: Justine Segovia, SILVANA, RVT
== END | disposition home or self-care (01) ==
LOC: CVS 07:04
PROVIDERS: PCP Family Medicine; Referring Provider Family Medicine; Visit Provider Family Medicine
DX: R01.1 Cardiac murmur, unspecified (principal)
CPT/HCPCS: 93306

== ENCOUNTER → 2024-02-21 | Outpatient (CLI) | payer MEDICARE, OTHER, SELFPAY ==
--- NOTE | 2024-02-21 09:18 | RAD_ITS ---
STUDY: X-RAY CHEST REASON FOR EXAM: Female, 63 years old. AV Stenosis TECHNIQUE: PA and lateral COMPARISON: None. FINDINGS: The lungs are clear and expanded. There is no demonstrated pleural abnormality. Normal size heart. Normal mediastinum and sirena. Normal visualized pulmonary arteries. Normal visualized aortic arch and descending thoracic aorta. Mild dextroscoliosis at the thoracolumbar junction. Normal visualized ribs, clavicles, and shoulders. There is no demonstrated abnormality of the visualized soft tissue structures of the upper abdomen. RAD/Chest PA and Lateral IMPRESSION: No acute cardiopulmonary pathology Electronically Signed: Estrada Colin MD at 19:44 EDT ,
[2024-02-21 09:44] LABS: Absolute Lymphocyte Count 1.64 X10^3/uL (0.83-4.51); Absolute Neutrophil Count 6.4 X10^3/uL (2.0-7.7); Basophil# 0.05 X10^3/uL; Basophil% 0.6 % (0-1); Eosinophil# 0.27 X10^3/uL; Hematocrit 26.2 % (37-47); Hemoglobin 8.3 g/dL (12.0-15.0); Lymphocyte # 1.64 X10^3/ul (0.83-4.51); Lymphocyte % 18.2 % (19-41); Mean Corp Hgb Conc 31.7 g/dL (32-36); Mean Corpuscular Hgb 28.1 pg (27.0-32.0); Mean Corpuscular Volume 88.8 fL (81-99); Mean Platelet Vol. 10.3 fl (6.2-12.0); Monocyte# 0.63 X10^3/uL; NRBC Flagged by Analyzer 0.2 % (0-5); Neutrophil # 6.35 X10^3/uL (2.7-7.7); Neutrophil % 70.3 % (47-70); Platelet Count 186 K/mm3 (150-450); RBC Distribution Width CV 15.5 % (11.6-14.6); RBC Distribution Width SD 48.6 fl (35.1-43.9); Red Blood Count 2.95 M/mm3 (4.2-5.4)
[2024-02-21 10:26] LABS: Anion Gap 4 (5-15); BUN 19 mg/dL (7-18); BUN/Creat Ratio 25.4 RATIO (10-20); Calcium,Total 9.1 mg/dL (8.5-10.1); Chloride 109 mmol/L (98-107); Creatinine, Serum 0.75 mg/dL (0.55-1.02); EST Glomerular Filtration Rate 83 mL/min (>60); Est Glom Filt Rate - Afr Amer 100 mL/min (>60); Glucose 110 mg/dL (74-106); Potassium 4.2 mmol/L (3.5-5.1); Sodium Level 140 mmol/L (136-145)
[2024-02-21 19:40] LABS: Platelet Count 191 K/mm3 (150-450); RET-HE 30.5 pg (30-35); Reticulocyte Count 5.01 % (0.5-1.5)
[2024-02-21 19:49] LABS: Ferritin 15 ng/mL (8-252); Iron 82 ug/dL (50-170); Iron Binding Capacity,Total 310 ug/dL (250-450); PERCENT IRON SATURATION 26.5 % (15.0-55.0)
== END | disposition home or self-care (01) ==
LOC: RAD 09:11
PROVIDERS: PCP Family Medicine; Referring Provider Internal Medicine Cardiovascular Disease; Visit Provider Internal Medicine Cardiovascular Disease
DX: D64.9 Anemia, unspecified (principal); I35.0 Nonrheumatic aortic (valve) stenosis
CPT/HCPCS: 36415; 71046; 80048; 82728; 83540; 83550; 85025; 85045

== ENCOUNTER 2024-02-28 12:28 | Day surgery (SDC) | payer MEDICARE, OTHER, SELFPAY ==
[2024-02-28] VITALS (10 sets, daily range): BP systolic 84–120; BP diastolic 40–61; PULSE 65–72; RESP 14–18; TEMP 36.3–37.1; O2SAT 88–100; BMI 30.2
[2024-02-28] MEDS: Lactated Ringers 1,000 ML 999 ML IV (13:10)
--- NOTE | 2024-02-28 13:57 | PRE.ANES_ITS ---
ASA Classification* ASA Classification ASA Classification: 4 and E Assessment & Plan Anesthesia* Anesthesia Assessment Anesthesia Assessment: Discussed sedation and/or anesthesia options, risks, benefits, and alternatives with patient/parents/legal guardian/POA. Questions invited. The patient/parents/legal guardian/POA seems to understand and agrees to proceed with anesthesia plan. Reviewed the physical assessment, medical history, allergy history and patient home medications list prior to surgery/procedure/anesthetic and documented any changes. Performed airway and anesthesia risk assessments. 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 When Was Last Pacemaker Check QUESTION #4 FULL TEXT: You/Your Family Experience fever (hyperthermia) with Anesthesia Last Oral Intake Last Oral intake: Last Oral Intake NPO since 10:00 02/28/24 13:12 Meds taken in AM with sips of Yes 02/28/24 13:12 water? Meds patient instructed to PROPRANOLOL, DULOXETINE 02/28/24 13:12 take am of surgery PONV PONV - steel engraver: PONV - steel engraver Female Yes 02/28/24 13:12 HX of Motion Sickness Yes 02/28/24 13:12 HX of N/V After Surgery No 02/28/24 13:12 Non-Smoker Yes 02/28/24 13:12 Duration of Surgery greater No 02/28/24 13:12 than 60 minutes Number of Risk Factors 3 02/28/24 13:12 PONV Score Moderate Risk 02/28/24 13:12 Height & Weight Height & Weight: Anesthesia: Height & Weight Height 5 ft 4 in 02/28/24 13:12 Weight: 79.8 kg 02/28/24 13:12 Body Mass Index (BMI) 30.2 02/28/24 13:12 Respiratory Assessment Respiratory Assessment - steel engraver: Respiratory Tract Infection Hx - steel engraver Hx Respiratory Tract Infection No 02/28/24 13:12 STOP Sleep Apnea STOP Sleep Apnea - steel engraver: STOP Sleep Apnea - steel engraver Hx Hypertension Yes 02/28/24 13:12 Hx Sleep Apnea No 02/28/24 13:12 CPAP BIPAP Do you snore loudly (louder Yes 02/28/24 13:12 than talking or can be heard Do you often feel tired/ No 02/28/24 13:12 fatigued/ sleepy during daytime? Has anyone observed you stop No 02/28/24 13:12 breathing during sleep? STOP Results Positive 02/28/24 13:12 QUESTION #5 FULL TEXT : Do you snore loudly (louder than talking or can be heard through closed doors)? 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 Specify any problems Hx of Preganancy in last 3 No 02/28/24 13:12 Months Nurse Filling Out Transfusion SKOERLISA 02/28/24 13:12 & Questions: Date: 02/28/24 02/28/24 13:12 Time: 13:19 02/28/24 13:12 Patient unable to answer at this time (ie. confused, unrespo /Reproduction History /Reproductive History - steel engraver: /Reproductive Hx- steel engraver Hx Now No 02/28/24 13:12 Gestational Age (in weeks): EDC: Hx Hx Para Hx Section SAB No 02/28/24 13:12 Active Medications Active Medications: Current Medications Generic Name Dose Route Start Last Admin Trade Name Kailyn PRN Reason Stop Dose Admin Lactated Ringer's 1,000 mls @ 15 mls/hr 02/28/24 13:00 IV .Q48H [facility] Anesthesia Focused Assessment* Temperature: 97.8 F Pulse Rate: 66 Blood Pressure: 89/57 Respiratory Rate: 17 Pulse Ox: 94 Airway Assessment Mouth opens: >3 cm Mallampati Score: III Focused Labs Anesthesia Preop lab: CBC WBC 9.0 K/mm3 (4.4-11.0) 02/21/24 09:26 RBC 2.95 M/mm3 (4.2-5.4) L 02/21/24 09:26 Hgb 8.3 g/dL (12.0-15.0) L 02/21/24 09:26 Hct 26.2 % (37-47) L 02/21/24 09:26 Plt Count 186 K/mm3 (150-450) 02/21/24 09:26 CHEMISTRY Potassium 4.2 mmol/L (3.5-5.1) 02/21/24 09:26 Sodium 140 mmol/L (136-145) 02/21/24 09:26 Magnesium 2.2 mg/dL (1.6-2.6) 02/07/24 10:48 BUN 19 mg/dL (7-18) H 02/21/24 09:26 Creatinine 0.75 mg/dL (0.55-1.02) 02/21/24 09:26 Glucose 110 mg/dL (74-106) H 02/21/24 09:26 TSH 0.65 uIU/mL (0.358-3.74) 02/07/24 10:48 COAG Review of Systems (Anesthesia) ROS Narrative System reviewed and no additional complaints, except as documented. [facility] Medical History Anemia Wears contact lenses Wears glasses Post-menopausal High cholesterol Blackout Gastric reflux Non-smoker Normal Holter exam Cardiology follow-up encounter Family history of colon cancer in father Dysplastic nevi Heart murmur Breast lump Seasonal allergies Tinnitus of left ear Hyperlipidemia High triglycerides Paroxysmal supraventricular tachycardia Symptomatic bradycardia Benign essential tremor Obesity Migraines History of trigger finger Shoulder pain Arthritis Home Medications ?Medication ?Instructions ?Recorded ?Last Taken ?Type cetirizine 10 mg capsule (Zyrtec) 10 mg PO QDAY 01/02/18 02/27/24 History propranolol 60 mg capsule,24 80 mg PO Q24H 01/02/18 02/28/24 History hr,extended release diazepam 5 mg tablet 5 mg PO DAILY PRN dizziness #30 06/02/19 Unknown History tabs duloxetine 60 mg capsule,delayed 60 mg PO DAILY #90 caps 06/02/19 02/28/24 History release simvastatin 40 mg tablet 40 mg PO QHS #90 tabs 06/02/19 02/27/24 History sumatriptan succinate 100 mg tablet 100 mg PO Q2H #5 tabs 06/02/19 Unknown History aspirin 81 mg tablet,delayed 81 mg PO DAILY 04/17/23 02/22/24 History release (Adult Low Dose Aspirin) omega-3 fatty acids-fish oil 360 1 cap PO DAILY 04/17/23 02/27/24 History mg-1,200 mg capsule (Fish Oil) ferrous sulfate 325 mg (65 mg 325 mg PO DAILY 02/21/24 02/27/24 History iron) tablet (Feosol) diclofenac potassium 50 mg tablet 50 mg PO 02/28/24 02/22/24 History Allergy/AdvReac Type Severity Reaction Status Date / Time No Known Allergies Allergy Verified 02/28/24 13:10 Family History Brother Myocardial infarction, Onset Age: 63 Mother Breast cancer Hypertension Hyperlipidemia CVA (cerebral vascular accident) Father Colon cancer Other Cancer Surgical History Hx of colonoscopy Hx of tubal ligation Hx of carpal tunnel repair Social History household members: spouse current occupational status: retired Smoking Status: Former smoker alcohol intake: current substance use type: does not use caffeine: Yes
[2024-02-28 14:04] LABS: Hematocrit 26.4 % (37-47); Hemoglobin 8.4 g/dL (12.0-15.0); Mean Corp Hgb Conc 31.8 g/dL (32-36); Mean Corpuscular Hgb 28.6 pg (27.0-32.0); Mean Corpuscular Volume 89.8 fL (81-99); Mean Platelet Vol. 10.2 fl (6.2-12.0); Platelet Count 226 K/mm3 (150-450); RBC Distribution Width CV 15.9 % (11.6-14.6); RBC Distribution Width SD 51.8 fl (35.1-43.9); Red Blood Count 2.94 M/mm3 (4.2-5.4)
[2024-02-28 14:16] LABS: Troponin-I HS 10 pg/mL (3.0-54.0)
--- NOTE | 2024-02-28 14:30 | PCM.HP.BLA ---
History and Physical Date of Service: 02/27/24 MR#: [id number] Acct: [id number] Name: INGRIS WINSTON Rep #: [id number] : 1960 Provider: Dr. 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 Required: No Is patient in pain?: No Allergies No Known Allergies Allergy (Verified 02/27/24 15:17) Medications ?Medication ?Instructions ?Recorded ?Confirmed ?Type cetirizine 10 mg capsule (Zyrtec) 10 mg PO QDAY 01/02/18 02/27/24 History propranolol 60 mg capsule,24 80 mg PO Q24H 01/02/18 02/27/24 History hr,extended release diazepam 5 mg tablet 5 mg PO DAILY PRN dizziness #30 06/02/19 02/27/24 History tabs duloxetine 60 mg capsule,delayed 60 mg PO DAILY #90 caps 06/02/19 02/27/24 History release simvastatin 40 mg tablet 40 mg PO QHS #90 tabs 06/02/19 02/27/24 History sumatriptan succinate 100 mg tablet 100 mg PO Q2H #5 tabs 06/02/19 02/27/24 History aspirin 81 mg tablet,delayed 81 mg PO DAILY 04/17/23 02/27/24 History release (Adult Low Dose Aspirin) omega-3 fatty acids-fish oil 360 1 cap PO DAILY 04/17/23 02/27/24 History mg-1,200 mg capsule (Fish Oil) ferrous sulfate 325 mg (65 mg 325 mg PO DAILY 02/21/24 02/27/24 History iron) tablet (Feosol) [facility] Medical History (Updated 02/27/24 @ 18:[address] Rei Prado MD) Anemia Wears contact lenses Wears glasses Post-menopausal High cholesterol Blackout Gastric reflux Non-smoker Normal Holter exam Cardiology follow-up encounter Family history of colon cancer in father Dysplastic nevi Heart murmur Breast lump Seasonal allergies Tinnitus of left ear Hyperlipidemia High triglycerides Paroxysmal supraventricular tachycardia Symptomatic bradycardia Benign essential tremor Obesity Migraines History of trigger finger Shoulder pain Arthritis Surgical History Hx of colonoscopy Hx of tubal ligation Hx of carpal tunnel repair Family History Brother Myocardial infarction, Onset Age: 63Mother Breast cancer Hypertension Hyperlipidemia CVA (cerebral vascular accident)Father Colon cancerOther Cancer Social History household members: spouse current occupational status: retired Smoking Status: Current every day smoker alcohol intake: current substance use type: does not use caffeine: Yes HPI HPI HPI: Patient is a 63-year-old female who presents for concern for occult blood loss anemia. They are referred for surgical consultation from Dr. Klein for consideration of EGD. Patient presents today with her . She shares that since November she has noticed weakness in her legs as well as extreme tiredness and dizziness. She additionally confirms some lightheadedness. She denies any passing out. When asked specifically about her bowel habits, Mrs. Winston denies any observation of bright red blood or dark stools (now noting the latter since she began iron at the end of January). She further details her bowel habits to state that she experiences a soft bowel movement 1-2 times per day and has not required any straining. She does confirm a history of sporadic heartburn symptoms which she states is conditionally present after eating certain red sauces and chocolate at night. In the absence of ingesting these food culprits she does not experience symptoms. She further denies any history of ulcers or other upper GI diagnoses personally. Patient denies any family history of GI diagnoses or anemia. Patient was previously prescribed diclofenac for treatment of arthritic pains (a medication she states that she has been on for many years) but discontinued this medication promptly in January after she was noted to be anemic. Patient denies any history of prior transfusions Patient and her share that she is under workup for valvular stenosis of the aortic valve and is pending cardiac catheterization with Dr. Chun on the morning of 03/04/2024. Patient is noted to have undergone colonoscopy with Dr. Tadeo farrar on 05/23/2023. During that study she was found to have number of polyps including some tubular adenomas of the ascending colon but there is no concern for sources of blood loss. Patient's hemoglobin trend ranges from 13.2 on 04/13/2023 to 11.4 on 02/07/2024 to 8.3 on 02/21/2024. ROS General General: Yes fatigue; No weight change, appetite, colon cancer, breast cancer or weakness HEENT HEENT: No difficulty swallowing, eye injury, eye surgery, swollen glands or hoarseness Endo Endocrine: No thyroid disease, diabetes mellitus, thyroid cancer, Hair loss, heat intolerance or cold intolerance Skin Skin: No rash or changing moles Breast Breast: No left breast lump, right breast lump, nipple discharge, breast pain, abnormal mammogram, abnormal US or breast enlargement Musc Musculoskeletal: Yes arthritis; No back problems, rheumatoid arthritis, gout or joint pain Cardio Cardiovascular: Yes murmur; No pacemaker, heart disease, atrial fibrillation, high blood pressure, heart attack, heart stent, palpitations, shortness of breat with exertion or chest pain Psych Psychiatric: No depression, anxiety or hearing voices Resp Respiratory: No shortness of breath, No sleep apnea, No cough, No COPD, No asthma, No emphysema and No wheezing Gastro Gastrointestinal: No abdominal pain, No nausea or vomiting, No diarrhea, No constipation, No blood in stool, No acid reflux, No hemorrhoids, No ulcers, No gallbladder problem and No black,tarry stools Joel Hematologic: No blood thinners, No blood disorders, No bleeding, No anemia and No blood clots Neuro Neurologic: No system reviewed and no additional complaints, except as documented, No as per HPI, No abnormal gait, No abnormal hearing, No abnormal movements, No abnormal speech, No behavioral changes, No burning sensations, No confusion, No convulsions, No disequilibrium, No dizziness, No localized weakness, No frequent falls, No headache(s), No lack of coordination, No loss of vision, No memory loss, No numbness, No other visual disturbances, No radicular pain, No restless legs, No sensory deficit, No syncope, No tingling, No tremor(s), No weakness and No other Exam Const General: cooperative and anxious Orientation: alert, awake and oriented x3 Resp Effort & Inspection: normal respiratory effort GI Other: No visible scars, nondistended, soft, mild tenderness to palpation reported in the epigastrium with deeper palpation?otherwise nontender Assessment and Plan Assessment and Plan (1) Anemia: Status: Acute Comment: Patient is a 63-year-old female who presents on urgent referral given progressive anemia that was first noted at the end of January after patient complained of new onset fatigue, weakness, and lightheadedness. She denies any observation of abnormal bowel habits or evidence of upper GI bleeding. She does have a history of chronic diclofenac use (since discontinued in January) for arthritic pains. Between this and patient's reports of heartburn as well as mild epigastric discomfort there is certainly a possibility she is experiencing occult GI losses from a peptic ulcer. Given her rather abrupt decline in hemoglobin and ongoing symptoms I have recommended semiurgent endoscopy to assess for a source. Patient previously underwent colonoscopy in May 2023 without concerning findings for source of bleeding. Thus, the focus of today's visit was on plans for EGD. And drawings were made to elaborate on the extent of this study. After checking surgical availability for the next week and planning around patient's cardiac catheterization next week I proposed proceeding with this study tomorrow as an add-on case. Patient was readily accepting of this offer. I have examined the patient and the H&P has been reviewed. There are no clinical changes since date of exam apart from some mildly lower blood pressures. Patient states that she has had no evidence of bleeding and remains at her baseline level of symptoms from this anemia. However, anesthesia is concerned about patient's severe aortic stenosis and this relative hypotension so patient is being bolused and will likely receive 1 unit of PRBCs and transfusion. Awaiting initiation of transfusion before proceeding to endoscopy suite for esophagogastroduodenoscopy.
[2024-02-28] MEDS: Lactated Ringers 1,000 ML 15 ML IV (15:28)
--- NOTE | 2024-02-28 16:44 | PCM.POST.ANE ---
Anesthesia: Postop Eval I Current Vital Signs Temperature: 98.1 F Pulse Rate: 67 Blood Pressure: 118/57 Respiratory Rate: 16 Pulse Ox: 94 Oxygen Delivery Method: Room Air Assessment Airway patent: Yes Spontaneous unlabored respirations: Yes Mental status: Awake nausea: No Vomiting: No Anesthesia Complication: No Fluid Hydration Crystalloid volume administer (ml): 400 Total IV fluid infused: 400 Progress Note Anesthesia document: Postop Eval 1 completed: Yes
--- NOTE | 2024-02-28 16:54 | OP.CCLET_ITS ---
02/28/2024 Anisa Klein [id number] [facility] [address] Re : Upper GI endoscopy procedure for Edwige Maier Dear Dr. Klein This procedure was performed on , February 28, 2024. My impressions and recommendations are as follows: Impressions : - No gross lesions in the second portion of the duodenum. No specimens collected. - Nodular mucosa in the first portion of the duodenum. No specimens collected. - Mucosal nodule found in the duodenum. No specimens collected. - Gastritis. No specimens collected. - Small hiatal hernia. No specimens collected. - Abnormal (rule out Bai's esophagus) mucosa in the esophagus. No specimens collected. - White nummular lesions in esophageal mucosa. No specimens collected. - The examination was otherwise normal. Recommendations : - Discharge patient to home (via wheelchair). - Resume previous diet today. - Use Protonix (pantoprazole) 40 mg PO BID today. - Use sucralfate tablets 1 gram PO BID today. - Repeat upper endoscopy (date not yet determined) to evaluate the response to therapy. - Telephone my office for study results in 1 week. - Continue present medications. My findings are described in the full procedure note, which is enclosed. If I can be of further assistance, please feel free to contact me at Doctor phone number(s): , Work: . Sincerely, Rei Prado MD 02/28/2024 4:53:56 PM This report has been signed electronically.
--- NOTE | 2024-02-28 16:54 | OP.EGD_ITS ---
Patient Name: Edwige Maier Procedure Date: 02/28/2024 2:07 PM Date of : 1960 Age: 63 Procedure: Upper GI endoscopy Indications: Unexplained iron deficiency anemia Providers: Rei Prado MD Medicines: See the Anesthesia note for documentation of the administered medications Patient Profile: Refer to note in patient chart for documentation of history and physical. Complications: No immediate complications. Estimated blood loss: Minimal. Procedure: Pre-Anesthesia Assessment: - The heart rate, respiratory rate, oxygen saturations, blood pressure, adequacy of pulmonary ventilation, and response to care were monitored throughout the procedure. After obtaining informed consent, the endoscope was passed under direct vision. Throughout the procedure, the patient's blood pressure, pulse, and oxygen saturations were monitored continuously. The gastroscope was introduced through the mouth, and advanced to the second part of duodenum. The upper GI endoscopy was accomplished without difficulty. The patient tolerated the procedure well. Scope In: 4:26:47 PM Scope Out: 4:36:16 PM Total Procedure Duration Time 0 hours 9 minutes 29 seconds Findings: No gross lesions were noted in the second portion of the duodenum. No biopsies or other specimens were collected for this exam. Localized nodular mucosa was found in the first portion of the duodenum. No biopsies or other specimens were collected for this exam. A few 2 mm mucosal nodules with a localized distribution were found in the duodenal bulb. No biopsies or other specimens were collected for this exam. Diffuse mild inflammation characterized by erythema and friability was found in the entire examined stomach. No biopsies or other specimens were collected for this exam. No biopsies or other specimens were collected for this exam. A small hiatal hernia was present. No biopsies or other specimens were collected for this exam. Localized moderate mucosal changes characterized by an abnormal appearance suspicious for Bai's were found at the gastroesophageal junction. No biopsies or other specimens were collected for this exam. White nummular lesions were noted in the middle third of the esophagus. No biopsies or other specimens were collected for this exam. The exam was otherwise without abnormality. Impression: - No gross lesions in the second portion of the duodenum. No specimens collected. - Nodular mucosa in the first portion of the duodenum. No specimens collected. - Mucosal nodule found in the duodenum. No specimens collected. - Gastritis. No specimens collected. - Small hiatal hernia. No specimens collected. - Abnormal (rule out Bai's esophagus) mucosa in the esophagus. No specimens collected. - White nummular lesions in esophageal mucosa. No specimens collected. - The examination was otherwise normal. Recommendation: - Discharge patient to home (via wheelchair). - Resume previous diet today. - Use Protonix (pantoprazole) 40 mg PO BID today. - Use sucralfate tablets 1 gram PO BID today. - Repeat upper endoscopy (date not yet determined) to evaluate the response to therapy. - Telephone my office for study results in 1 week. - Continue present medications. Procedure Code(s): --- Professional --- 38863, Esophagogastroduodenoscopy, flexible, transoral; diagnostic, including collection of specimen(s) by brushing or washing, when performed (separate procedure) Diagnosis Code(s): --- Professional --- K31.89, Other diseases of stomach and duodenum K29.70, Gastritis, unspecified, without bleeding K44.9, Diaphragmatic hernia without obstruction or gangrene K22.89, Other specified disease of esophagus D50.9, Iron deficiency anemia, unspecified CPT copyright 2021 [employer]. All rights reserved. The codes documented in this report are preliminary and upon hims coder review may be revised to meet current compliance requirements. Rei Prado MD 02/28/2024 4:53:56 PM This report has been signed electronically. Number of Addenda: 0 Note Initiated On: 02/28/2024 2:07 PM
--- NOTE | 2024-02-28 17:38 | PCM.POSTANE2 ---
Anesthesia Postop Eval I Sum Postop Eval Completion status Anesthesia document: Postop Eval 1 completed: Yes Anesthesia Postop Eval I Summary Anesthesia Postop Eval I Summary: Anesthesia Postop Eval I: Assessment Summary Airway patent Yes 02/28/24 16:56 [email or web address] Spontaneous unlabored Yes 02/28/24 16:56 [email or web address] respirations Mental status Awake 02/28/24 16:56 [email or web address] nausea No 02/28/24 16:56 [email or web address] Vomiting No 02/28/24 16:56 [email or web address] Anesthesia Postop Eval I: Fluid Summary Crystalloid volume administer 400 02/28/24 16:56 [email or web address] (ml) Colloids volume administered ( ml) Blood Product volume administered (ml) Total IV fluid infused 400 02/28/24 16:56 [email or web address] Anesthesia Postop Eval I: Summary Notes Anesthesia Complication No 02/28/24 16:56 [email or web address] Anesthesia Complication Comment: Post-operative progress note Anesthesia: Postop Eval II Evaluation Mental status: Awake Pain Level: 0 nausea: No Vomiting: No Complications Anesthesia Complication: No
== END 2024-02-28 17:14 | disposition home or self-care (01) ==
LOC: EN 12:30 → AC 12:31
PROVIDERS: Anesthesiology; PCP Family Medicine; Referring Provider Family Medicine; Visit Provider Surgery
PROC: 0DJ08ZZ Inspection of Upper Intestinal Tract, Via Natural or Artificial Opening Endoscopic (ICD-10-PCS; CPT 43235; principal; 2024-02-28 13:55)
DX: D50.9 Iron deficiency anemia, unspecified (principal); E78.00 Pure hypercholesterolemia, unspecified; K44.9 Diaphragmatic hernia without obstruction or gangrene; K29.70 Gastritis, unspecified, without bleeding; M19.90 Unspecified osteoarthritis, unspecified site; F17.200 Nicotine dependence, unspecified, uncomplicated; Z79.1 Long term (current) use of non-steroidal anti-inflammatories (NSAID); Z98.51 Tubal ligation status; Z80.0 Family history of malignant neoplasm of digestive organs; K21.9 Gastro-esophageal reflux disease without esophagitis; Z79.899 Other long term (current) drug therapy; K31.89 Other diseases of stomach and duodenum; K22.89 Other specified disease of esophagus
CPT/HCPCS: 43235; 84484; 85027; 86850; 86900; 86901; 86920; 86922; 93005; J7030; J7120; P9016; J2405

== ENCOUNTER 2024-03-04 07:32 | Day surgery (SDC) | payer MEDICARE, OTHER, SELFPAY ==
[2024-03-03 09:28] LABS: Hematocrit 31.2 % (37-47); Hemoglobin 9.8 g/dL (12.0-15.0); Mean Corp Hgb Conc 31.4 g/dL (32-36); Mean Corpuscular Hgb 26.8 pg (27.0-32.0); Mean Corpuscular Volume 85.5 fL (81-99); Mean Platelet Vol. 10.1 fl (6.2-12.0); Platelet Count 237 K/mm3 (150-450); Red Blood Count 3.65 M/mm3 (4.2-5.4); White Blood Count 7.8 K/mm3 (4.4-11.0)
[2024-03-03 12:07] VITALS: BMI 31.3
--- NOTE | 2024-03-05 10:41 | CL.D_ITS ---
Patient Name: INGRIS WINSTON Study Date: 03/04/2024 Performing: Andrzej Chun MD Ht: 63 inches 160.02 cm : 1960 Wt: 177.01 lbs 80.29 kg Age: 63 Gender: female BSA: 1.84 PROCEDURE(S) PERFORMED DC02-(45256)[facility] CLINICAL PROFILE AND INDICATIONS Indications: Valvular Disease Heart Failure: None Stress/Imaging Stress/Image Study Performed: No CAD Presentations: No Sxs, no angina. CONCLUSIONS Normal coronary arteries Normal LV size, wall motion,and systolic function Aortic Valve Stenosis- Severe RECOMMENDATIONS Refer for valve eval. TAVR vrs SAVR DESCRIPTION OF PROCEDURE The patient arrived to the procedure lab. The risks and benefits of the procedure as well as a full description of our services here and current unavailability of surgical backup were fully explained to the patient and/or their significant other prior to the catheterization. The Timeout was completed, verifying the correct patient and procedure. The patient's procedural site was prepped and draped in the usual fashion. Local anesthetic was given subcutaneously to right radial region with Lidocaine 2%. Using a modified Seldinger technique, arterial access was obtained via the right radial artery, a 6Fr sheath was inserted. Left Coronary Artery selective angiography was performed in multiple views using a 5 Fr. 4.0 [place] catheter. Right Coronary Artery selective angiography was then performed in multiple views using a 5 Fr. 4.0 [place] catheter.The arterial sheath was pulled and a TR Band was applied for hemostasis. 10cc of air CORONARY ANGIOGRAPHY DOMINANCE: Right Dominant LEFT HEART ASSESSMENT Left Ventricular Ejection Fraction: by Echo 65 % Normal Left Ventricular systolic function LEFT MAIN: Angiographically normal LEFT ANTERIOR DESCENDING ARTERY: Angiographically normal CIRCUMFLEX ARTERY: Angiographically normal RIGHT CORONARY ARTERY: Angiographically normal AORTIC ROOT: Angiographically normal COMPLICATIONS No Complications PROCEDURE MEDICATIONS Fentanyl 50 mcg IV Versed 1 mg IV Versed 1 mg IV Oxygen: 2 L/min via nasal cannula Heparin given IA 03/04/2024 08:04:22 Verapamil 2.5mg, 3000 units of Heparin given IA 03/04/2024 08:04:22 SUMMARY OF HEMODYNAMIC DATA Time AIR REST ECG 07:16:58 AO 120/56 (85) SA 08:27:50 AIR REST 08:46:15 AIR REST ECG 09:17:44 Signed By Andrzej Chun MD On 03/05/2024 10:40:12 Andrzej Chun MD
== END 2024-03-04 10:20 | disposition home or self-care (01) ==
PROVIDERS: PCP Family Medicine; Referring Provider Internal Medicine Cardiovascular Disease; Visit Provider Internal Medicine Cardiovascular Disease
DX: Z01.810 Encounter for preprocedural cardiovascular examination (principal); I35.0 Nonrheumatic aortic (valve) stenosis; E78.00 Pure hypercholesterolemia, unspecified; R42 Dizziness and giddiness; I47.10 Supraventricular tachycardia, unspecified; R00.1 Bradycardia, unspecified; G25.0 Essential tremor; Z79.899 Other long term (current) drug therapy; Z79.82 Long term (current) use of aspirin; K21.9 Gastro-esophageal reflux disease without esophagitis; F17.210 Nicotine dependence, cigarettes, uncomplicated; R06.09 Other forms of dyspnea
CPT/HCPCS: 36415; 85027; 93454; 99152; 99153; J7040; Q9967; C1769; C1894

== ENCOUNTER → 2024-03-07 | Outpatient (CLI) | payer MEDICARE, OTHER, SELFPAY ==
[2024-03-07 11:17] LABS: ALB/GLOB Ratio 0.9 RATIO (0.9-2.4); AST(SGOT) 17 U/L (15-37); Alanine Aminotransfer ALT/SGPT 31 U/L (13-56); Albumin, Serum 3.2 g/dL (3.2-5.0); Alkaline Phosphatase 52 U/L (45-117); Anion Gap 2 (5-15); BUN 16 mg/dL (7-18); BUN/Creat Ratio 18.6 RATIO (10-20); Calcium,Total 9.4 mg/dL (8.5-10.1); Chloride 107 mmol/L (98-107); Creatinine, Serum 0.86 mg/dL (0.55-1.02); EST Glomerular Filtration Rate 70 mL/min (>60); Est Glom Filt Rate - Afr Amer 85 mL/min (>60); Globulin 3.5 g/dL (2.2-4.2); Glucose 107 mg/dL (74-106); Potassium 4.3 mmol/L (3.5-5.1); Protein, Total 6.7 g/dL (6.4-8.2); Sodium Level 139 mmol/L (136-145)
== END | disposition home or self-care (01) ==
PROVIDERS: PCP Family Medicine; Referring Provider Internal Medicine Interventional Cardiology; Visit Provider Internal Medicine Interventional Cardiology
DX: I35.0 Nonrheumatic aortic (valve) stenosis (principal)
CPT/HCPCS: 36415; 80053

== ENCOUNTER → 2024-03-12 | Outpatient (CLI) | payer MEDICARE, OTHER, SELFPAY ==
[2024-03-12 11:03] LABS: Absolute Lymphocyte Count 1.57 X10^3/uL (0.83-4.51); Absolute Neutrophil Count 4.6 X10^3/uL (2.0-7.7); Basophil# 0.08 X10^3/uL; Basophil% 1.1 % (0-1); Eosinophil# 0.37 X10^3/uL; Eosinophils% 5.2 % (0-5); Hematocrit 34.2 % (37-47); Hemoglobin 10.5 g/dL (12.0-15.0); Lymphocyte # 1.57 X10^3/ul (0.83-4.51); Lymphocyte % 22.1 % (19-41); Mean Corp Hgb Conc 30.7 g/dL (32-36); Mean Corpuscular Hgb 26.2 pg (27.0-32.0); Mean Corpuscular Volume 85.3 fL (81-99); Mean Platelet Vol. 9.9 fl (6.2-12.0); Monocyte# 0.47 X10^3/uL; Monocyte% 6.6 % (0-10); NRBC Flagged by Analyzer 0 % (0-5); Neutrophil # 4.57 X10^3/uL (2.7-7.7); Neutrophil % 64.6 % (47-70); Platelet Count 232 K/mm3 (150-450); RBC Distribution Width SD 55.9 fl (35.1-43.9); Red Blood Count 4.01 M/mm3 (4.2-5.4); White Blood Count 7.1 K/mm3 (4.4-11.0)
[2024-03-12 11:33] LABS: ALB/GLOB Ratio 0.9 RATIO (0.9-2.4); AST(SGOT) 12 U/L (15-37); Alanine Aminotransfer ALT/SGPT 23 U/L (13-56); Albumin, Serum 3.3 g/dL (3.2-5.0); Alkaline Phosphatase 51 U/L (45-117); Anion Gap 5 (5-15); BUN 17 mg/dL (7-18); Calcium,Total 8.9 mg/dL (8.5-10.1); Chloride 106 mmol/L (98-107); EST Glomerular Filtration Rate 67 mL/min (>60); Est Glom Filt Rate - Afr Amer 81 mL/min (>60); Globulin 3.7 g/dL (2.2-4.2); Glucose 101 mg/dL (74-106); Potassium 4.2 mmol/L (3.5-5.1); Sodium Level 138 mmol/L (136-145)
== END | disposition home or self-care (01) ==
LOC: LAB 10:24
PROVIDERS: PCP Family Medicine; Referring Provider Nurse Practitioner Adult Health; Visit Provider Nurse Practitioner Adult Health
DX: R06.00 Dyspnea, unspecified (principal)
CPT/HCPCS: 36415; 80053; 83880; 85025

== ENCOUNTER → 2024-04-02 | Outpatient (CLI) | payer MEDICARE, OTHER, SELFPAY ==
[2024-04-02 10:24] LABS: Absolute Lymphocyte Count 1.91 X10^3/uL (0.83-4.51); Absolute Neutrophil Count 5.4 X10^3/uL (2.0-7.7); Basophil# 0.08 X10^3/uL; Eosinophil# 0.48 X10^3/uL; Eosinophils% 5.7 % (0-5); Hematocrit 33.5 % (37-47); Hemoglobin 10.4 g/dL (12.0-15.0); Lymphocyte # 1.91 X10^3/ul (0.83-4.51); Lymphocyte % 22.8 % (19-41); Mean Corpuscular Volume 83.8 fL (81-99); Mean Platelet Vol. 8.9 fl (6.2-12.0); NRBC Flagged by Analyzer 0 % (0-5); Neutrophil # 5.38 X10^3/uL (2.7-7.7); Neutrophil % 64.1 % (47-70); Platelet Count 262 K/mm3 (150-450); RBC Distribution Width CV 16.4 % (11.6-14.6); RBC Distribution Width SD 49.9 fl (35.1-43.9); White Blood Count 8.4 K/mm3 (4.4-11.0)
[2024-04-02 10:51] LABS: Ferritin 15 ng/mL (8-252); Iron 37 ug/dL (50-170); Iron Binding Capacity,Total 330 ug/dL (250-450); PERCENT IRON SATURATION 11.2 % (15.0-55.0)
== END | disposition home or self-care (01) ==
LOC: LAB.FUTURE 10:09
PROVIDERS: PCP Family Medicine; Referring Provider Family Medicine; Visit Provider Family Medicine
DX: D64.9 Anemia, unspecified (principal)
CPT/HCPCS: 36415; 82728; 83540; 83550; 85025

== ENCOUNTER 2024-04-11 08:24 | Outpatient (CLI) | payer MEDICARE, OTHER, SELFPAY ==
[2024-04-11 08:43] VITALS: BP 148/74; PULSE 77; RESP 16; TEMP 36; O2SAT 97
[2024-04-11] MEDS: 0.9% NaCl Peripheral Flush Adult/Peds IV (08:48)
[2024-04-11] MEDS: 0.9% Normal Saline (100mL Bag) 100 ML 15 ML IV (08:54)
[2024-04-11] MEDS: Ferric Derisomaltose (Monoferric) 1,000 MG in 0.9% NaCl 100 ML 330 MG IV (08:57)
[2024-04-11 09:57] VITALS: BP 130/66; PULSE 69; RESP 16
== END 2024-04-11 23:59 | disposition home or self-care (01) ==
LOC: MEDOUTP 08:25
PROVIDERS: PCP Family Medicine; Referring Provider Family Medicine; Visit Provider Family Medicine
DX: D50.9 Iron deficiency anemia, unspecified (principal)
CPT/HCPCS: 96365; J1437; A4216

== ENCOUNTER → 2024-04-18 | Outpatient (CLI) | payer MEDICARE, OTHER, SELFPAY ==
--- NOTE | 2024-04-18 09:45 | CDU_ITS ---
Reason For Study: Abn Blood Flow Screening Rt. Velocities/BP Lt. Velocities/BP Prox CCA 95/22 cm/sec. Prox CCA 100/24 cm/sec. Mid CCA 93/23 cm/sec. Mid CCA 73/19 cm/sec. Dist CCA 67/22 cm/sec. Dist CCA 90/28 cm/sec. Prox ICA 67/18 cm/sec. Prox ICA 64/16 cm/sec. Mid ICA 71/21 cm/sec. Mid ICA 68/23 cm/sec. Dist ICA 108/35 cm/sec. Dist ICA 68/25 cm/sec. Rt. ICA/CCA = 1.2. Lt. ICA/CCA = 0.9. Prox ECA 85/21 cm/sec. Prox ECA 84/23 cm/sec. Rt. Vert. 45/15 cm/sec. Lt. Vert. 32/12 cm/sec. Right Extracranial There is intimal thickening but no significant atherosclerotic plaque noted in the right common carotid artery. There is intimal thickening but no significant atherosclerotic plaque noted in the right internal carotid artery. The right internal carotid artery is very tortuous. There is no significant atherosclerotic plaque noted in the right external carotid artery. Antegrade flow is noted in the right vertebral artery. Left Extracranial There is intimal thickening but no significant atherosclerotic plaque noted in the left common carotid artery. There is heterogeneous, smooth atherosclerotic plaque noted in the left internal carotid artery. There is intimal thickening but no significant atherosclerotic plaque noted in the left external carotid artery. Antegrade flow is noted in the left vertebral artery. Procedure Carotid Duplex 88971. This is a Carotid Duplex examination using B-mode, color flow and specral Doppler. Exam performed in department. VL/Carotid Duplex Ultrasound Interpretation Summary Normal right extracranial internal carotid. Mild (<50%) stenosis left extracranial internal carotid. Patent and antegrade vertebrals bilaterally. Ordering Physician: Anisa Klein Referring Physician: Anisa Klein Performed By: Roof, Archana, RDCS, RVT
== END | disposition home or self-care (01) ==
LOC: CVS 09:42
PROVIDERS: PCP Family Medicine; Referring Provider Family Medicine; Visit Provider Family Medicine
DX: I65.23 Occlusion and stenosis of bilateral carotid arteries (principal)
CPT/HCPCS: 93880

== ENCOUNTER → 2024-05-02 | Outpatient (CLI) | payer MEDICARE, OTHER, SELFPAY ==
--- NOTE | 2024-05-02 10:41 | BI_ITS ---
MAMMOGRAPHY - BILATERAL SCREENING REASON FOR EXAM: Female, 64 years old. Routine annual screening examination. PERTINENT HISTORY: Mother with breast cancer. TECHNIQUE: Digital bilateral breast simba (3D mammographic acquisition) in the CC and MLO projections. 2-D mediolateral oblique (MLO) and craniocaudad (CC) views of both breasts were obtained. CAD: Full Field Digital Mammography with Computer Added Detection was performed. COMPARISON: Comparison is made with prior study April 26, 2023 and April 24, 2022. FINDINGS: Breast Composition: There are scattered areas of fibroglandular density. There are no dominant masses or suspicious calcifications. Stable small benign-appearing bilateral axillary lymph nodes. No other significant abnormalities are identified. There has been no significant change since the prior study. BI/SCRN MAMM (CAD)W/SIMBA BILAT IMPRESSION: Stable bilateral screening mammogram. Yearly follow-up mammogram recommended. (A) ASSESSMENT CATEGORY: BIRADS Category 2: Benign. A letter regarding these results will be sent to the patient by the facility within 30 days. Approximately 10% of breast cancers are not detected by mammography. A normal mammogram should not delay biopsy of a clinically suspicious abnormality. [id number] Electronically Signed: Tab Castañeda MD at 13:42 EDT ,
== END | disposition home or self-care (01) ==
LOC: OPBI 10:40
PROVIDERS: PCP Family Medicine; Referring Provider Family Medicine; Visit Provider Family Medicine
DX: Z12.31 Encounter for screening mammogram for malignant neoplasm of breast (principal); Z80.3 Family history of malignant neoplasm of breast
CPT/HCPCS: 77063; 77067

== ENCOUNTER → 2024-05-06 | Outpatient (CLI) | payer MEDICARE, OTHER, SELFPAY ==
[2024-05-06 09:15] LABS: Absolute Lymphocyte Count 1.76 X10^3/uL (0.83-4.51); Absolute Neutrophil Count 3.9 X10^3/uL (2.0-7.7); Basophil# 0.07 X10^3/uL; Basophil% 1.1 % (0-1); Eosinophil# 0.29 X10^3/uL; Eosinophils% 4.5 % (0-5); Hematocrit 39.8 % (37-47); Hemoglobin 12.7 g/dL (12.0-15.0); Lymphocyte # 1.76 X10^3/ul (0.83-4.51); Lymphocyte % 27.3 % (19-41); Mean Corp Hgb Conc 31.9 g/dL (32-36); Mean Corpuscular Hgb 27.1 pg (27.0-32.0); Mean Platelet Vol. 9.9 fl (6.2-12.0); Monocyte% 6.2 % (0-10); NRBC Flagged by Analyzer 0 % (0-5); Neutrophil % 60.4 % (47-70); Platelet Count 178 K/mm3 (150-450); RBC Distribution Width CV 16.2 % (11.6-14.6); RBC Distribution Width SD 49.8 fl (35.1-43.9); Red Blood Count 4.68 M/mm3 (4.2-5.4); White Blood Count 6.5 K/mm3 (4.4-11.0)
[2024-05-06 12:17] LABS: Cholesterol 200 mg/dL (200); Ferritin 141 ng/mL (8-252); High Density Lipoprotein 52 mg/dL; Iron 65 ug/dL (50-170); Iron Binding Capacity,Total 252 ug/dL (250-450); PERCENT IRON SATURATION 25.8 % (15.0-55.0); Triglycerides 135 mg/dL; Very Low Density Lipoprotein 27 mg/dL (5-40)
== END | disposition home or self-care (01) ==
LOC: LAB 08:35
PROVIDERS: PCP Family Medicine; Referring Provider Family Medicine; Visit Provider Family Medicine
DX: E78.5 Hyperlipidemia, unspecified (principal); D64.9 Anemia, unspecified
CPT/HCPCS: 36415; 80061; 82728; 83540; 83550; 85025

== ENCOUNTER → 2024-06-12 | Outpatient (CLI) | payer MEDICARE, OTHER, SELFPAY ==
[2024-06-12 16:15] LABS: Absolute Lymphocyte Count 2.34 X10^3/uL (0.83-4.51); Absolute Neutrophil Count 3.8 X10^3/uL (2.0-7.7); Basophil# 0.06 X10^3/uL; Basophil% 0.9 % (0-1); Eosinophil# 0.25 X10^3/uL; Eosinophils% 3.6 % (0-5); Hematocrit 40.2 % (37-47); Hemoglobin 13.3 g/dL (12.0-15.0); Lymphocyte # 2.34 X10^3/ul (0.83-4.51); Lymphocyte % 33.7 % (19-41); Mean Corp Hgb Conc 33.1 g/dL (32-36); Mean Corpuscular Hgb 27.4 pg (27.0-32.0); Mean Corpuscular Volume 82.9 fL (81-99); Mean Platelet Vol. 9.3 fl (6.2-12.0); Monocyte# 0.51 X10^3/uL; Monocyte% 7.3 % (0-10); NRBC Flagged by Analyzer 0 % (0-5); Neutrophil # 3.77 X10^3/uL (2.7-7.7); Neutrophil % 54.2 % (47-70); Platelet Count 191 K/mm3 (150-450); RBC Distribution Width CV 15.7 % (11.6-14.6); RBC Distribution Width SD 47.5 fl (35.1-43.9); Red Blood Count 4.85 M/mm3 (4.2-5.4)
[2024-06-12 16:37] LABS: Ferritin 102 ng/mL (8-252); Iron Binding Capacity,Total 252 ug/dL (250-450)
== END | disposition home or self-care (01) ==
LOC: LAB 15:31
PROVIDERS: PCP Family Medicine; Referring Provider Family Medicine; Visit Provider Family Medicine
DX: D64.9 Anemia, unspecified (principal)
CPT/HCPCS: 36415; 82728; 83550; 85025

== ENCOUNTER 2024-06-19 06:23 | Day surgery (SDC) | payer MEDICARE, OTHER, SELFPAY ==
[2024-06-19] VITALS (7 sets, daily range): BP systolic 86–112; BP diastolic 39–63; PULSE 65–77; RESP 16–18; TEMP 36.1–36.6; O2SAT 93–98; BMI 31.1
--- NOTE | 2024-06-19 | GASB_PTH ---
PATIENT: INGRIS WINSTON LOC: EN U#:[id number] AGE/SX: 64/F ROOM: RE06/19/[address]: Dr. Rei Prado MD : 1960 BED: DIS: 06/19/2024 SPEC #: [id number] RECD: 06/19/24 13:07 STATUS: MARTITA REYNOLD #: [id number] REGINALD: 06/19/24 00:[address]: Rei Prado DEPT: SURGICAL PATHOLOGY RECD BY: Reuben Troy ENTERED: 06/19/24 13:08 SP TYPE: Gastric Bx OTHR DR: Dr. Anisa Klein MD Tissues: A - Duodenum, NOS B - Duodenum, NOS C - Gastric mucous membrane D - Gastric mucous membrane E - Gastric mucous membrane F - Esophageal mucous membrane G - Esophageal mucous membrane Procedures: Special Stain Group I Surgery Specimen Level IV Alcian Blue/PAS (control) HEADER OPERATION: EGD with biopsy PRE-OP DIAGNOSIS: Anemia TISSUE SUBMITTED: A- Duodenal bulb nodule biopsy, B- Duodenal bulb polyp biopsy, C- Antrum biopsy, D- Gastric cardia polyp biopsy, E- Gastroesophageal junction biopsy, F- Distal esophagus biopsy, G- Proximal esophageal plaque MICROSCOPIC DIAGNOSIS A. Duodenal bulb nodule, biopsy: Gastric metaplasia. B. Duodenal bulb polyp, biopsy: Polypoid gastric metaplasia. Associated mild chronic inflammation. C. Gastric antrum, biopsy: Mild chronic inflammation. See comment. D. Gastric cardia polyp, biopsy: Fragments of gastric mucosa with mild chronic inflammation. E. Gastroesophageal junction, biopsy: Minimal chronic inflammation. No evidence of goblet cell metaplasia. See comment. F. Distal esophagus, biopsy: Fragments of benign squamous mucosa. No evidence of inflammation. See comment. G. Proximal esophageal plaque, biopsy: Fragments of benign squamous mucosa. No evidence of inflammation. AM. 06/20/2024 COMMENT C. The results of immunohistochemistry for Helicobacter pylori will be reported separately ([id number]). E, F. Alcian blue/PAS stain with matched control is used in the evaluation of the specimen. MICROSCOPIC DESCRIPTION Slides are reviewed. GROSS DESCRIPTION A. Received in fixative is one container labeled with the patient's name and designated Duodenal bulb nodule biopsy. The specimen consists of one irregular fragment of light espino soft tissue that measures 0.3 x 0.3 x 0.1 cm. The specimen is totally submitted in one cassette. B. Received in fixative is one container labeled with the patient's name and designated Duodenal bulb polyp biopsy. The specimen consists of multiple irregular fragments of light espino soft tissue that in aggregate measure 0.8 x 0.3 x 0.1 cm. The specimen is totally submitted in one cassette. C. Received in fixative is one container labeled with the patient's name and designated Antrum biopsy. The specimen consists of multiple irregular fragments of light espino soft tissue that in aggregate measure 0.6 x 0.3 x 0.1 cm. The specimen is totally submitted in one cassette. D. Received in fixative is one container labeled with the patient's name and designated Gastric cardia biopsy. The specimen consists of one irregular fragment of light espino soft tissue that measures 0.3 x 0.2 x 0.1 cm. The specimen is totally submitted in one cassette. E. Received in fixative is one container labeled with the patient's name and designated GE junction biopsy. The specimen consists of multiple irregular fragments of light espino soft tissue that in aggregate measure 0.6 x 0.3 x 0.1 cm. The specimen is totally submitted in one cassette. F. Received in fixative is one container labeled with the patient's name and designated Distal esophageal plaque biopsy. The specimen consists of one irregular fragment of light espino soft tissue that measures 0.5 x 0.5 x 0.1 cm. The specimen is totally submitted in one cassette. G. Received in fixative is one container labeled with the patient's name and designated Proximal esophageal plaque biopsy. The specimen consists of multiple irregular fragments of light espino soft tissue that in aggregate measure 0.8 x 0.5 x 0.1 cm. The specimen is totally submitted in one cassette. 06/19/2024 TC:3 CPT:16951q2,64218t5
--- NOTE | 2024-06-19 06:36 | PCM.PRE.AN2 ---
ASA Classification* ASA Classification ASA Classification: 2 Assessment & Plan Anesthesia* Anesthesia Assessment Anesthesia Assessment: Discussed sedation and/or anesthesia options, risks, benefits, and alternatives with patient/parents/legal guardian/POA. Questions invited. The patient/parents/legal guardian/POA seems to understand and agrees to proceed with anesthesia plan. Reviewed the physical assessment, medical history, allergy history and patient home medications list prior to surgery/procedure/anesthetic and documented any changes. Performed airway and anesthesia risk assessments. Anesthesia Type Anesthesia Type: MAC Anesthesia Focused Assessment* Airway Assessment Mouth opens: >3 cm Mallampati Score: II Focused Labs Anesthesia Preop lab: CBC WBC 7.0 K/mm3 (4.4-11.0) 06/12/24 15:33 RBC 4.85 M/mm3 (4.2-5.4) 06/12/24 15:33 Hgb 13.3 g/dL (12.0-15.0) 06/12/24 15:33 Hct 40.2 % (37-47) 06/12/24 15:33 Plt Count 191 K/mm3 (150-450) 06/12/24 15:33 CHEMISTRY Potassium 4.2 mmol/L (3.5-5.1) 03/12/24 10:27 Sodium 138 mmol/L (136-145) 03/12/24 10:27 Magnesium 2.2 mg/dL (1.6-2.6) 02/07/24 10:48 BUN 17 mg/dL (7-18) 03/12/24 10:27 Creatinine 0.90 mg/dL (0.55-1.02) 03/12/24 10:27 Glucose 101 mg/dL (74-106) 03/12/24 10:27 TSH 0.65 uIU/mL (0.358-3.74) 02/07/24 10:48 COAG Pre-Assessment Diagnosis/Proposed Procedure Planned Operative Procedure(s): EGD Anesthesia History 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 When Was Last Pacemaker Check QUESTION #4 FULL TEXT: You/Your Family Experience fever (hyperthermia) with Anesthesia Last Oral Intake Last Oral intake: Last Oral Intake NPO since Meds taken in AM with sips of water? Meds patient instructed to take am of surgery PONV PONV - rubber goods inspector tester: PONV - rubber goods inspector tester Female Yes 06/16/24 11:43 HX of Motion Sickness No 06/16/24 11:43 HX of N/V After Surgery No 06/16/24 11:43 Non-Smoker No 06/16/24 11:43 Duration of Surgery greater No 06/16/24 11:43 than 60 minutes Number of Risk Factors 1 06/16/24 11:43 PONV Score Low Risk 06/16/24 11:43 Height & Weight Height & Weight: Anesthesia: Height & Weight Height 5 ft 3 in 04/11/24 08:43 Respiratory Assessment Respiratory Assessment - rubber goods inspector tester: Respiratory Tract Infection Hx - rubber goods inspector tester Hx Respiratory Tract Infection No 06/16/24 11:43 STOP Sleep Apnea STOP Sleep Apnea - rubber goods inspector tester: STOP Sleep Apnea - rubber goods inspector tester Hx Hypertension Yes: CONTROLLED ON MED 06/16/24 11:43 Hx Sleep Apnea No 06/16/24 11:43 CPAP BIPAP Do you snore loudly (louder No 06/16/24 11:43 than talking or can be heard Do you often feel tired/ No 06/16/24 11:43 fatigued/ sleepy during daytime? Has anyone observed you stop No 06/16/24 11:43 breathing during sleep? STOP Results Negative 06/16/24 11:43 QUESTION #5 FULL TEXT : Do you snore loudly (louder than talking or can be heard through closed doors)? Tobacco Use History Tobacco Use History - rubber goods inspector tester: Tobacco Use History - rubber goods inspector tester Tobacco Use Smoking Status Light Smoker (<10/day) 06/16/24 11:43 Hx Tobacco Use Yes 06/16/24 11:43 Years Smoking Packs Smoked per Day Smoking Cessation Date was within the last 15 years Hx Smoking Cessation Date 02/21/24 06/16/24 11:43 Hx Smoking Cessation No 06/16/24 11:43 Counseling Hematologic Medial History Hematologic Hx - rubber goods inspector tester: Hematologic Medical Hx - residential collections Hx of Blood Transfusion Yes 06/16/24 11:43 Hx of Transfusion in last 3 Yes 06/16/24 11:43 Months Date of Last Transfusion (if [id number] 06/16/24 11:43 within last 3 months) Ever experience any problems No 06/16/24 11:43 with transfusion(s)? Specify any problems Hx of Preganancy in last 3 No 06/16/24 11:43 Months Nurse Filling Out Transfusion VCHRISTIN 06/16/24 11:43 & Questions: Date: 06/16/24 06/16/24 11:43 Time: 11:45 06/16/24 11:43 Patient unable to answer at this time (ie. confused, unrespo /Reproduction History /Reproductive History - rubber goods inspector tester: /Reproductive Hx- rubber goods inspector tester Hx Now Gestational Age (in weeks): EDC: Hx Hx Para Hx Section SAB No 06/16/24 11:43 PFSH Medical History History of echocardiogram History of transcatheter aortic valve replacement (TAVR) Anemia Wears contact lenses Wears glasses Post-menopausal High cholesterol Blackout Gastric reflux Non-smoker Normal Holter exam Cardiology follow-up encounter Family history of colon cancer in father Dysplastic nevi Heart murmur Breast lump Seasonal allergies Tinnitus of left ear Hyperlipidemia High triglycerides Paroxysmal supraventricular tachycardia Symptomatic bradycardia Benign essential tremor Obesity Migraines History of trigger finger Shoulder pain Arthritis Home Medications ?Medication ?Instructions ?Recorded ?Last Taken ?Type cetirizine 10 mg capsule (Zyrtec) 10 mg PO QDAY 01/02/18 02/27/24 History propranolol 60 mg capsule,24 80 mg PO Q24H 01/02/18 02/28/24 History hr,extended release diazepam 5 mg tablet 5 mg PO DAILY PRN dizziness #30 06/02/19 Unknown History tabs duloxetine 60 mg capsule,delayed 60 mg PO DAILY #90 caps 06/02/19 02/28/24 History release simvastatin 40 mg tablet 40 mg PO QHS #90 tabs 06/02/19 02/27/24 History sumatriptan succinate 100 mg tablet 100 mg PO Q2H PRN migraine 06/02/19 Unknown History headache #5 tabs aspirin 81 mg tablet,delayed 81 mg PO DAILY 04/17/23 06/14/24 History release (Adult Low Dose Aspirin) omega-3 fatty acids-fish oil 360 1 cap PO BID 04/17/23 02/27/24 History mg-1,200 mg capsule (Fish Oil) ferrous sulfate 325 mg (65 mg 325 mg PO QODAY 02/21/24 02/27/24 History iron) tablet (Feosol) ascorbic acid (vitamin C) 500 mg 500 mg PO DAILY 06/16/24 Unknown History tablet (C-500) Allergy/AdvReac Type Severity Reaction Status Date / Time No Known Allergies Allergy Verified 06/16/24 11:29 Family History Brother Myocardial infarction, Onset Age: 63 Mother Breast cancer Hypertension Hyperlipidemia CVA (cerebral vascular accident) Father Colon cancer Other Cancer Surgical History History of cardiac catheterization History of esophagogastroduodenoscopy (EGD) Hx of colonoscopy Hx of tubal ligation Hx of carpal tunnel repair Social History household members: spouse current occupational status: retired Smoking Status: Light Smoker (<10/day) alcohol intake: current substance use type: does not use caffeine: Yes Review of Systems (Anesthesia) ROS Narrative System reviewed and no additional complaints, except as documented.
--- NOTE | 2024-06-19 07:24 | HP.PCM_ITS ---
History and Physical Date of Admission: 06/19/24 HPI HPI HPI: Patient is a 63-year-old female who presents for concern for occult blood loss anemia. They are referred for surgical consultation from Dr. Klein for consideration of EGD. Patient presents today with her . She shares that since November she has noticed weakness in her legs as well as extreme tiredness and dizziness. She additionally confirms some lightheadedness. She denies any passing out. When asked specifically about her bowel habits, Mrs. Maier denies any observation of bright red blood or dark stools (now noting the latter since she began iron at the end of January). She further details her bowel habits to state that she experiences a soft bowel movement 1-2 times per day and has not required any straining. She does confirm a history of sporadic heartburn symptoms which she states is conditionally present after eating certain red sauces and chocolate at night. In the absence of ingesting these food culprits she does not experience symptoms. She further denies any history of ulcers or other upper GI diagnoses personally. Patient denies any family history of GI diagnoses or anemia. Patient was previously prescribed diclofenac for treatment of arthritic pains (a medication she states that she has been on for many years) but discontinued this medication promptly in January after she was noted to be anemic. Patient denies any history of prior transfusions Patient and her share that she is under workup for valvular stenosis of the aortic valve and is pending cardiac catheterization with Dr. Chun on the morning of 03/04/2024. Patient is noted to have undergone colonoscopy with Dr. Tadeo farrar on 05/23/2023. During that study she was found to have number of polyps including some tubular adenomas of the ascending colon but there is no concern for sources of blood loss. Patient's hemoglobin trend ranges from 13.2 on 04/13/2023 to 11.4 on 02/07/2024 to 8.3 on 02/21/2024. ROS General General: Yes fatigue; No weight change, appetite, colon cancer, breast cancer or weakness HEENT HEENT: No difficulty swallowing, eye injury, eye surgery, swollen glands or hoarseness Endo Endocrine: No thyroid disease, diabetes mellitus, thyroid cancer, Hair loss, heat intolerance or cold intolerance Skin Skin: No rash or changing moles Breast Breast: No left breast lump, right breast lump, nipple discharge, breast pain, abnormal mammogram, abnormal US or breast enlargement Musc Musculoskeletal: Yes arthritis; No back problems, rheumatoid arthritis, gout or joint pain Cardio Cardiovascular: Yes murmur; No pacemaker, heart disease, atrial fibrillation, high blood pressure, heart attack, heart stent, palpitations, shortness of breat with exertion or chest pain Psych Psychiatric: No depression, anxiety or hearing voices Resp Respiratory: No shortness of breath, No sleep apnea, No cough, No COPD, No asthma, No emphysema and No wheezing Gastro Gastrointestinal: No abdominal pain, No nausea or vomiting, No diarrhea, No constipation, No blood in stool, No acid reflux, No hemorrhoids, No ulcers, No gallbladder problem and No black,tarry stools Joel Hematologic: No blood thinners, No blood disorders, No bleeding, No anemia and No blood clots Neuro Neurologic: No system reviewed and no additional complaints, except as documented, No as per HPI, No abnormal gait, No abnormal hearing, No abnormal movements, No abnormal speech, No behavioral changes, No burning sensations, No confusion, No convulsions, No disequilibrium, No dizziness, No localized weakness, No frequent falls, No headache(s), No lack of coordination, No loss of vision, No memory loss, No numbness, No other visual disturbances, No radicular pain, No restless legs, No sensory deficit, No syncope, No tingling, No tremor(s), No weakness and No other Exam Const General: cooperative and anxious Orientation: alert, awake and oriented x3 Resp Effort & Inspection: normal respiratory effort GI Other: No visible scars, nondistended, soft, mild tenderness to palpation reported in the epigastrium with deeper palpation?otherwise nontender Assessment and Plan Assessment and Plan (1) Anemia: Status: Acute Comment: Patient is a 63-year-old female who presents on urgent referral given progressive anemia that was first noted at the end of January after patient complained of new onset fatigue, weakness, and lightheadedness. She denies any observation of abnormal bowel habits or evidence of upper GI bleeding. She does have a history of chronic diclofenac use (since discontinued in January) for arthritic pains. Between this and patient's reports of heartburn as well as mild epigastric discomfort there is certainly a possibility she is experiencing occult GI losses from a peptic ulcer. Given her rather abrupt decline in h emoglobin and ongoing symptoms I have recommended semiurgent endoscopy to assess for a source. Patient previously underwent colonoscopy in May 2023 without concerning findings for source of bleeding. Thus, the focus of today's visit was on plans for EGD. And drawings were made to elaborate on the extent of this study. After checking surgical availability for the next week and planning around patient's cardiac catheterization next week I proposed proceeding with this study tomorrow as an add-on case. Patient was readily accepting of this offer. I have examined the patient the following changes are noted: Patient underwent replacement of aortic valve and reports significant improvements in her general wellbeing. We also reviewed that her hemoglobin is up 5 g/dL from her prior v alue. She is without complaint. Will plan to proceed for EGD with possible biopsy after several areas of interest were identified at her last procedure in February of this year. She is advised that if biopsies undertaken she should plan to hold aspirin and ibuprofen medications for 48 hours post procedure.
--- NOTE | 2024-06-19 07:30 | IMM_PTH ---
PATIENT: INGRIS WINSTON LOC: EN U#:[id number] AGE/SX: 64/F ROOM: RE06/19/[address]: Dr. Rei Prado MD : 1960 BED: DIS: 06/19/2024 SPEC #: [id number] RECD: 06/19/24 13:44 STATUS: MARTITA REQ #: [id number] REGINALD: 06/19/24 07:[address]: Rei Prado DEPT: IMMUNOHISTOCHEMISTRY RECD BY: Dany Dee ENTERED: 06/19/24 13:44 SP TYPE: IMMUNO OTHR DR: Dr. Anisa Klein MD Tissues: C - Gastric mucous membrane Procedures: H Pylori (initial) PHYSICIAN & INSTITUTION [place] [address] SPECIMEN INFORMATION: Tissue Source: C- Antrum biopsy Clinical Info: Anemia Specimen Number: [id number] CPT code: 28559 METHODOLOGY: Deparaffinized sections of prefer/formalin-fixed tissue or PAP/DQ stained slides are incubated with monoclonal/polyclonal antibodies/oligonucleotide probes. Localization is made via biotin free immunoperoxidase method. Appropriate controls are performed and reacted as expected. Results on target cell population are indicated in the following table: RESULTS: ANTIBODY / CLONE RESULT Block C H Pylori (polyclonal) negative These tests were developed and their performance characteristics determined by [facility]. They may not have been cleared or approved by the [place].S. Food and Drug Administration. The FDA has determined that such clearance or approval is not necessary. The above immunohistochemical/dualISH markers are ordered and reviewed by the Pathologist. INTERPRETATION: C. Gastric antrum, biopsy: Negative for Helicobacter pylori organisms. 06/20/2024
--- NOTE | 2024-06-19 08:45 | PCM.POST.ANE ---
Anesthesia: Postop Eval I Current Vital Signs Temperature: 97.8 F Pulse Rate: 67 Blood Pressure: 105/49 Respiratory Rate: 16 Pulse Ox: 95 Oxygen Delivery Method: Nasal Cannula Oxygen Flow Rate (L/min): 3 Assessment Airway patent: Yes Spontaneous unlabored respirations: Yes Mental status: Awake and Calm nausea: No Vomiting: No Anesthesia Complication: Yes Anesthesia Complication Comment:: O2 desat d/t profuse coughing secondary to GERD and smoking hx Fluid Hydration Crystalloid volume administer (ml): 40 Total IV fluid infused: 40 Progress Note Anesthesia document: Postop Eval 1 completed: Yes
--- NOTE | 2024-06-19 08:46 | OP.EGD_ITS ---
Patient Name: Edwige Maier Procedure Date: 06/19/2024 7:51 AM Date of : 1960 Age: 64 Procedure: Upper GI endoscopy Indications: Duodenitis, Esophagitis, Follow-up of esophagitis, Gastritis, Follow-up of gastritis Providers: Rei Prado MD Referring MD: Rei Prado MD Medicines: See the Anesthesia note for documentation of the administered medications Patient Profile: Refer to note in patient chart for documentation of history and physical. Complications: No immediate complications. Estimated blood loss: Minimal. Procedure: Pre-Anesthesia Assessment: - The heart rate, respiratory rate, oxygen saturations, blood pressure, adequacy of pulmonary ventilation, and response to care were monitored throughout the procedure. After obtaining informed consent, the endoscope was passed under direct vision. Throughout the procedure, the patient's blood pressure, pulse, and oxygen saturations were monitored continuously. The Endoscope was introduced through the mouth, and advanced to the second part of duodenum. The upper GI endoscopy was somewhat difficult due to the patient's oxygen desaturation. Successful completion of the procedure was aided by withdrawing and reinserting the scope, performing chin lift and administering oxygen. The patient tolerated the procedure fairly well. Scope In: 8:02:02 AM Scope Out: 8:35:07 AM Total Procedure Duration Time 0 hours 33 minutes 5 seconds Findings: No gross lesions were noted in the second portion of the duodenum. No biopsies or other specimens were collected for this exam. A single 4 mm mucosal nodule with a localized distribution was found in the duodenal bulb. Biopsies were taken with a cold forceps for histology. Estimated blood loss was minimal. Multiple 2 to 4 mm semi-pedunculated polyps with no bleeding were found in the duodenal bulb. Biopsies were taken with a cold forceps for histology. Estimated blood loss was minimal. Localized mildly erythematous mucosa without bleeding was found in the gastric antrum. Biopsies were taken with a cold forceps for Helicobacter pylori testing. Estimated blood loss was minimal. A few 2 to 4 mm semi-sessile polyps with no bleeding and no stigmata of recent bleeding were found in the cardia. Biopsies were taken with a cold forceps for histology. Estimated blood loss was minimal. The Z-line was irregular and was found 37 cm from the incisors. Biopsies were taken with a cold forceps for histology. Estimated blood loss was minimal. Multiple 3 to 5 mm plaques were found in the lower third of the esophagus. Biopsies were taken with a cold forceps for histology. Estimated blood loss was minimal. Multiple 2 to 4 mm plaques were found in the upper third of the esophagus. Biopsies were taken with a cold forceps for histology. Estimated blood loss was minimal. Impression: - No gross lesions in the second portion of the duodenum. No specimens collected. - Mucosal nodule found in the duodenum. Biopsied. - Multiple duodenal polyps. Biopsied. - Erythematous mucosa in the antrum. Biopsied. - A few gastric polyps. Biopsied. - Z-line irregular, 37 cm from the incisors. Biopsied. - Multiple plaques in the lower third of the esophagus. Biopsied. - Multiple plaques in the upper third of the esophagus. Biopsied. Recommendation: - Discharge patient to home (via wheelchair). - Resume previous diet today. - No aspirin, ibuprofen, naproxen, or other non-steroidal anti-inflammatory drugs for 2 days after biopsy. - Await pathology results. - Telephone my office for pathology results in 1 week. Procedure Code(s): --- Professional --- 87853, Esophagogastroduodenoscopy, flexible, transoral; with biopsy, single or multiple Diagnosis Code(s): --- Professional --- K31.89, Other diseases of stomach and duodenum K31.7, Polyp of stomach and duodenum K22.89, Other specified disease of esophagus K29.80, Duodenitis without bleeding K20.90, Esophagitis, unspecified without bleeding K29.70, Gastritis, unspecified, without bleeding CPT copyright 2021 [employer]. All rights reserved. The codes documented in this report are preliminary and upon running instructor review may be revised to meet current compliance requirements. Rei Prado MD 06/19/2024 8:45:23 AM This report has been signed electronically. Number of Addenda: 0 Note Initiated On: 06/19/2024 7:51 AM
--- NOTE | 2024-06-19 08:46 | OP.CCLET_ITS ---
06/19/2024 Anisa Klein [place] [id number] [address] Re : Upper GI endoscopy procedure for Edwige Maier Dear Dr. Klein This procedure was performed on June. My impressions and recommendations are as follows: Impressions : - No gross lesions in the second portion of the duodenum. No specimens collected. - Mucosal nodule found in the duodenum. Biopsied. - Multiple duodenal polyps. Biopsied. - Erythematous mucosa in the antrum. Biopsied. - A few gastric polyps. Biopsied. - Z-line irregular, 37 cm from the incisors. Biopsied. - Multiple plaques in the lower third of the esophagus. Biopsied. - Multiple plaques in the upper third of the esophagus. Biopsied. Recommendations : - Discharge patient to home (via wheelchair). - Resume previous diet today. - No aspirin, ibuprofen, naproxen, or other non-steroidal anti-inflammatory drugs for 2 days after biopsy. - Await pathology results. - Telephone my office for pathology results in 1 week. My findings are described in the full procedure note, which is enclosed. If I can be of further assistance, please feel free to contact me at Doctor phone number(s): , Work: . Sincerely, Rei Prado MD 06/19/2024 8:45:23 AM This report has been signed electronically.
--- NOTE | 2024-06-19 10:28 | PCM.POSTANE2 ---
Anesthesia Postop Eval I Sum Postop Eval Completion status Anesthesia document: Postop Eval 1 completed: Yes Anesthesia Postop Eval I Summary Anesthesia Postop Eval I Summary: Anesthesia Postop Eval I: Assessment Summary Airway patent Yes 06/19/24 08:48 [email or web address] Spontaneous unlabored Yes 06/19/24 08:48 [email or web address] respirations Mental status Awake,Calm 06/19/24 08:48 [email or web address] nausea No 06/19/24 08:48 [email or web address] Vomiting No 06/19/24 08:48 [email or web address] Anesthesia Postop Eval I: Fluid Summary Crystalloid volume administer 40 06/19/24 08:48 [email or web address] (ml) Colloids volume administered ( ml) Blood Product volume administered (ml) Total IV fluid infused 40 06/19/24 08:48 [email or web address] Anesthesia Postop Eval I: Summary Notes Anesthesia Complication Yes 06/19/24 08:48 [email or web address] Anesthesia Complication O2 desat d/t 06/19/24 08:48 [email or web address] Comment: profuse coughing secondary to GERD and smoking hx Post-operative progress note Anesthesia: Postop Eval II Evaluation Mental status: Awake Pain Level: 0 nausea: No Vomiting: No
--- NOTE | 2024-06-19 10:28 | PCM.POSTANE2 ---
Anesthesia Postop Eval I Sum Postop Eval Completion status Anesthesia document: Postop Eval 1 completed: Yes Anesthesia Postop Eval I Summary Anesthesia Postop Eval I Summary: Anesthesia Postop Eval I: Assessment Summary Airway patent Yes 06/19/24 08:48 [email or web address] Spontaneous unlabored Yes 06/19/24 08:48 [email or web address] respirations Mental status Awake 06/19/24 10:28 nausea No 06/19/24 10:28 Vomiting No 06/19/24 10:28 Anesthesia Postop Eval I: Fluid Summary Crystalloid volume administer 40 06/19/24 08:48 [email or web address] (ml) Colloids volume administered ( ml) Blood Product volume administered (ml) Total IV fluid infused 40 06/19/24 08:48 [email or web address] Anesthesia Postop Eval I: Summary Notes Anesthesia Complication Yes 06/19/24 08:48 [email or web address] Anesthesia Complication O2 desat d/t 06/19/24 08:48 [email or web address] Comment: profuse coughing secondary to GERD and smoking hx Post-operative progress note Anesthesia: Postop Eval II Evaluation Mental status: Awake Pain Level: 0 nausea: No Vomiting: No
== END 2024-06-19 09:22 | disposition home or self-care (01) ==
LOC: EN 06:23 → AC 06:24
PROVIDERS: PCP Family Medicine; Referring Provider Surgery; Visit Provider Surgery
PROC: 0DJ08ZZ Inspection of Upper Intestinal Tract, Via Natural or Artificial Opening Endoscopic (ICD-10-PCS; CPT 43235; principal; 2024-06-19 07:25)
DX: D64.9 Anemia, unspecified (principal); K29.80 Duodenitis without bleeding; K20.90 Esophagitis, unspecified without bleeding; K22.89 Other specified disease of esophagus; K31.7 Polyp of stomach and duodenum; K29.70 Gastritis, unspecified, without bleeding; K31.89 Other diseases of stomach and duodenum
CPT/HCPCS: 43239; 88305; 88312; 88342; A4216; J2405

== ENCOUNTER → 2024-09-09 | Outpatient (CLI) | payer MEDICARE, OTHER, SELFPAY ==
[2024-09-09 11:15] LABS: Absolute Lymphocyte Count 1.69 X10^3/uL (0.83-4.51); Absolute Neutrophil Count 4.3 X10^3/uL (2.0-7.7); Basophil# 0.05 X10^3/uL; Basophil% 0.7 % (0-1); Eosinophil# 0.27 X10^3/uL; Hematocrit 40.3 % (37-47); Hemoglobin 13.4 g/dL (12.0-15.0); Lymphocyte # 1.69 X10^3/ul (0.83-4.51); Lymphocyte % 24.8 % (19-41); Mean Corp Hgb Conc 33.3 g/dL (32-36); Mean Corpuscular Hgb 29.4 pg (27.0-32.0); Mean Corpuscular Volume 88.4 fL (81-99); Mean Platelet Vol. 9.4 fl (6.2-12.0); Monocyte# 0.49 X10^3/uL; Monocyte% 7.2 % (0-10); NRBC Flagged by Analyzer 0 % (0-5); Neutrophil # 4.29 X10^3/uL (2.7-7.7); Neutrophil % 62.9 % (47-70); Platelet Count 188 K/mm3 (150-450); RBC Distribution Width CV 13.2 % (11.6-14.6); Red Blood Count 4.56 M/mm3 (4.2-5.4); White Blood Count 6.8 K/mm3 (4.4-11.0)
[2024-09-09 11:52] LABS: Ferritin 67 ng/mL (8-252); Iron 104 ug/dL (50-170); Iron Binding Capacity,Total 262 ug/dL (250-450); PERCENT IRON SATURATION 39.7 % (15.0-55.0)
== END | disposition home or self-care (01) ==
LOC: LAB 10:37
PROVIDERS: PCP Family Medicine; Referring Provider Family Medicine; Visit Provider Family Medicine
DX: D64.9 Anemia, unspecified (principal)
CPT/HCPCS: 36415; 82728; 83540; 83550; 85025

== ENCOUNTER → 2025-03-17 | Outpatient (CLI) | payer MEDICARE, OTHER, SELFPAY ==
--- NOTE | 2025-03-17 08:53 | ECHOD_ITS ---
Reason For Study Reason For Study: Aortic Stenosis Procedure This was a 2D Doppler, Color Flow transthoracic echocardiogram. Exam performed in department. Left Ventricle Normal LV size. Left ventricular systolic function is normal. The left ventricular ejection fraction is 60 %. No regional wall motion abnormalities noted. Right Ventricle Normal RV size. Normal systolic function. Atria Normal left atrium. Normal right atrium. Mitral Valve Normal mitral valve. Trivial eccentric mitral valve insufficiency. Tricuspid Valve Normal tricuspid valve. Mild tricuspid valve insufficiency. Aortic Valve Peak aortic valve gradient 24 mmHg. Mean aortic valve gradient 14 mmHg. Bioprosthetic aortic valve. Pulmonic Valve Normal pulmonic valve. Great Vessels Normal aortic root. The pulmonary artery is normal size. Inferior vena cava collapse with respiration. Pericardium/Pleural No pericardial effusion. MMode/2D Measurements & Calculations LVIDd: 4.5 cm IVSd: 0.88 cm LVOT diam: 2.0 cm LVIDs: 2.4 cm LVPWd: 1.0 cm LVOT area: 3.0 cm2 RVDd: 3.3 cm FS: 47.9 % Ao root diam: 3.9 cm LAV(MOD-bp): 38.0 ml LVAd ap4: 23.2 cm2 LAV(MOD-bp) Indexed: 20.4 ml/m2 LVLd ap4: 7.3 cm LAV(MOD-sp2): 41.6 ml EDV(MOD-sp4): 59.5 ml LAV(MOD-sp4): 31.2 ml EDV(sp4-el): 62.8 ml LVAs ap4: 11.5 cm2 LVLs ap4: 5.8 cm ESV(MOD-sp4): 19.4 ml ESV(sp4-el): 19.1 ml EF(MOD-sp4): 67.3 % EF(sp4-el): 69.6 % SV(MOD-sp4): 40.1 ml SV(sp4-el): 43.7 ml LA A4 area: 14.1 cm2 SI(MOD-sp4): 21.5 ml/m2 LA dimension(2D): 3.4 cm RA A4 area: 13.2 cm2 TAPSE: 1.9 cm Time Measurements MV dec time: 0.21 sec Doppler Measurements & Calculations MV E max nathan: 67.6 cm/sec Lat Peak E' Nathan: 9.0 cm/sec Med Peak E' Nathan: 9.3 cm/sec MV A max nathan: 87.4 cm/sec E/E' lat: 7.5 E/E' med: 7.3 MV E/A: 0.77 MV V2 max: 95.6 cm/sec MV P1/2t max nathan: 75.2 cm/sec Ao V2 max: 243.9 cm/sec MV max P.7 mmHg MV P1/2t: 62.7 msec Ao max P.9 mmHg MV V2 mean: 51.7 cm/sec Ao V2 mean: 174.4 cm/sec MV mean P.3 mmHg MV dec slope: 351.2 cm/sec2 Ao mean P.6 mmHg MV V2 VTI: 21.0 cm MVA(P1/2t): 3.5 cm2 Ao V2 VTI: 51.9 cm AV (velocity ratio): 0.56 MVA(VTI): 4.2 cm2 HAIDER(I,D): 1.7 cm2 HAIDER(V,D): 1.5 cm2 AI max nathan: 495.2 cm/sec LV V1 max: 121.1 cm/sec SV(LVOT): 87.2 ml AI max P.2 mmHg LV V1 max P.9 mmHg LV V1 mean P.6 mmHg AI dec slope: 345.1 cm/sec2 LV V1 mean: 89.8 cm/sec AI P1/2t: 420.3 msec LV V1 VTI: 28.9 cm PA V2 max: 77.4 cm/sec TR max nathan: 215.6 cm/sec TR max P.6 mmHg ECHO/Echo Complete Interpretation Summary Normal LV size. Left ventricular systolic function is normal. The left ventricular ejection fraction is 60 %. Mild tricuspid valve insufficiency. Bioprosthetic aortic valve. Mean aortic valve gradient 14 mmHg. Compared to the previous the above is essentially unchanged. Ordering Physician: ALEXEI ABARCA Referring Physician: Carleen Powers Performed By: Mark Gustafson RCS
== END | disposition home or self-care (01) ==
LOC: CVS 08:51
PROVIDERS: PCP Family Medicine; Referring Provider Nurse Practitioner Adult Health; Visit Provider Nurse Practitioner Adult Health
DX: I35.0 Nonrheumatic aortic (valve) stenosis (principal)
CPT/HCPCS: 93306

== ENCOUNTER → 2025-05-04 | Outpatient (CLI) | payer MEDICARE, OTHER, SELFPAY ==
--- NOTE | 2025-05-04 15:23 | BI_ITS ---
EXAM: SCRN MAMM (CAD)W/SIMBA BILAT DATE: 05/04/2025 CLINICAL HISTORY: F, Age 65 y/o , SCREENING Mother with breast cancer. TECHNIQUE: SCRN MAMM (CAD)W/SIMBA BILAT COMPARISON: Prior exam(s) dated May 02, 2024.. FINDINGS: TISSUE DENSITY: There are scattered areas of fibroglandular density. Bilateral Breast Mammographic Findings: No significant masses, calcifications or other abnormalities are identified. Stable small benign-appearing bilateral axillary lymph nodes. Stable asymmetry of breast tissue were more breast tissue is seen in the upper-outer quadrant of the right breast as compared to the left side. No suspicious masses, areas of developing architectural distortion, or suspicious calcifications. There has been no significant interval change. BI/SCRN MAMM (CAD)W/SIMBA BILAT IMPRESSION: Stable examination. OVERALL FINAL ASSESSMENT BI-RADS 2: BENIGN RECOMMENDATION: Routine annual follow-up in 1 Year A letter with findings and recommendations will be mailed to the patient. Reading Location: [facility]
== END | disposition home or self-care (01) ==
LOC: OPBI 15:22
PROVIDERS: PCP Family Medicine; Referring Provider Family Medicine; Visit Provider Family Medicine
DX: Z12.31 Encounter for screening mammogram for malignant neoplasm of breast (principal)
CPT/HCPCS: 77063; 77067

== ENCOUNTER → 2025-05-28 | Outpatient (CLI) | payer MEDICARE, OTHER, SELFPAY ==
[2025-05-28 09:56] LABS: Hematocrit 39.2 % (37-47); Hemoglobin 13.7 g/dL (12.0-15.0); Immature Granulocytes Count 0.030 X10^3/uL (0.0-0.0); Mean Corp Hgb Conc 34.9 g/dL (32-36); Mean Corpuscular Volume 86.9 fL (81-99); Mean Platelet Vol. 9.8 fl (6.2-12.0); NRBC Flagged by Analyzer 0 % (0-5); Platelet Count 194 K/mm3 (150-450); RBC Distribution Width CV 13.4 % (11.6-14.6); RBC Distribution Width SD 43.0 fl (35.1-43.9); Red Blood Count 4.51 M/mm3 (4.2-5.4); White Blood Count 7.3 K/mm3 (4.4-11.0)
[2025-05-28 10:47] LABS: AST(SGOT) 23 U/L (<=31); Alanine Aminotransfer ALT/SGPT 14 U/L (<=34); Albumin, Serum 4.1 g/dL (3.4-4.8); Alkaline Phosphatase 46 U/L (35-104); Anion Gap 12 (5-15); BUN 15 mg/dL (4-19); BUN/Creat Ratio 21.9 RATIO (10-20); Calcium,Total 9.3 mg/dL (7.6-11.0); Carbon Dioxide 22.1 mmol/L (21.0-32.0); Chloride 107 mmol/L (98-108); Cholesterol 216 mg/dL (<=200); Ferritin 82 ng/mL (22-378); Globulin 3.0 g/dL (2.2-4.2); Glucose 114 mg/dL (70-99); Low Density Lipoprotein Calc. 128 mg/dL; Potassium 4.3 mmol/L (3.3-5.1); Triglycerides 182 mg/dL; Very Low Density Lipoprotein 36 mg/dL (5-40); cholesterol:hdl ratio screen 4.16
== END | disposition home or self-care (01) ==
LOC: LAB 09:07
PROVIDERS: PCP Family Medicine; Referring Provider Family Medicine; Visit Provider Family Medicine
DX: E78.5 Hyperlipidemia, unspecified (principal); D64.9 Anemia, unspecified
CPT/HCPCS: 36415; 80053; 80061; 82728; 85025